=== PATIENT | female | born 1955 | race Caucasian/White ===

== ENCOUNTER 2019-02-04 00:43 | Emergency (ER) | payer MEDICARE, MEDICAID, SELFPAY ==
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
[2019-02-04 00:45] VITALS: BP 175/95; PULSE 82; RESP 18; TEMP 36.3; O2SAT 100; BMI 23.6
[2019-02-04 01:09] LABS: Add Manual Diff / Slide Review NO; Basophils Absolute Auto 0 /uL (0-100); Basophils Percent Auto 0.8 % (0-2); Eosinophils Absolute Auto 100 /uL (0-450); Eosinophils Percent Auto 1.3 % (2-4); Hematocrit 35.8 % (36-46); Hemoglobin 12.1 g/dL (12.0-16.0); Lymphocytes Absolute Auto 1100 /uL (1100-4500); Mean Corpuscular HGB Conc 33.9 % (30-36); Mean Corpuscular Hemoglobin 31.9 PG (26-34); Monocytes Absolute Auto 700 /uL (0-900); Monocytes Percent Auto 15.4 % (3-14); Neutrophils Absolute Auto 2600 /uL (1500-7000); Neutrophils Percent Auto 58.5 % (50-75); Platelet Count 440 X10^3/uL (150-400); Red Blood Cell Count 3.81 X10^6/uL (4.0-5.2); Red Cell Distribution Width 11.7 % (11.6-14.8); White Blood Cell Count 4.4 X10^3/uL (4.5-11.0)
--- NOTE | 2019-02-04 01:12 | PC.NURSE ---
Attempted to call significant other at request of the patient. No answer, voicemail left.
--- NOTE | 2019-02-04 01:28 | PC.NURSE ---
called at request of the patient. will be in as soon as he can.
[2019-02-04 01:36] LABS: Alanine Aminotransferase 25 IU/L (9-52); Albumin 4.4 g/dL (3.5-5.0); Albumin Globulin Ratio 1.4 (1.0-2.8); Alkaline Phosphatase 46 U/L (38-126); Aspartate Aminotransferase 31 IU/L (14-36); BUN Creatinine Ratio 34.3 (6-22); Bilirubin Total 0.2 mg/dL (0.2-1.3); Blood Urea Nitrogen 24 mg/dL (7-17); Calcium 9.1 mg/dL (8.4-10.2); Carbon Dioxide 27 mmol/L (22-32); Chloride 101 mmol/L (98-107); Estimated Glomerular Filt Rate > 60.0 mL/min (>60); Ethanol (ETOH) < 10 mg/dL; Globulin 3.1 g/dL (1.7-4.1); Glucose 103 mg/dL (80-110); HEMOLYSIS < 15 (0-50); Sodium 136 mmol/L (137-145); Total Protein 7.5 g/dL (6.3-8.2)
--- NOTE | 2019-02-04 01:45 | PC.NURSE ---
Odette at pt bedside per pt request. 1:1 staff at door.
[2019-02-04 01:51] LABS: Acetaminophen < 10 ug/mL (10-30); Lipase 87 U/L (23-300)
[2019-02-04 01:52] LABS: Salicylate < 1.0 mg/dL (<20)
--- NOTE | 2019-02-04 02:13 | PM.CHAP ---
Staff referral. Short visit to introduce myself. Pt shared that she was estranged from family and living in her car. Pt responded positively to my suggestion that the best path to mental and physical health was to follow the instructions of staff. Shared prayer. Dionisio Pascual [phone]
[2019-02-04] MEDS: ACETAMINOPHEN 325 MG TABLET 975 MG PO (02:39)
[2019-02-04] MEDS: LORazepam 1 MG TABLET PO (02:39)
[2019-02-04 03:22] LABS: Urine Amphetamines Negative (Negative); Urine Barbiturates Negative (Negative); Urine Benzodiazepines Negative (Negative); Urine Cocaine Negative (Negative); Urine MDMA Negative (Negative); Urine Methadone Negative (Negative); Urine Methamphetamines Negative (Negative); Urine Morphine/Opi cutoff 2000 Negative (Negative); Urine Oxycodone Negative (Negative); Urine Phencyclidine Negative (Negative); Urine Tetrahydrocannabinol Positive (Negative); Urine Tricyclic Antidepressant Negative (Negative)
[2019-02-04] MEDS: NICOTINE 21 MG PATCH TOP (03:22)
--- NOTE | 2019-02-04 03:23 | PC.NURSE ---
pt requested nicotene patch placed on back of right upper arm.
[2019-02-04 03:24] LABS: Thyroid Stimulating Hormone 3.09 uIU/mL (0.47-4.68)
[2019-02-04 04:00] VITALS: BP 160/85; PULSE 80; RESP 16; O2SAT 100
--- NOTE | 2019-02-04 05:09 | PC.NURSE ---
Spoke with Ed from [place]. Pt has been accepted by Dr. Tai, bed is at [place]. Receiving facility requests pt arrive around [id number]. [facility] transport has been arranged, ETA 0900.
[2019-02-04] MEDS: IBUPROFEN 400 MG TABLET 800 MG PO (05:45)
[2019-02-04] MEDS: SUMAtriptan 6 MG/0.5 ML VIAL SUBCUT (06:21)
--- NOTE | 2019-02-04 07:24 | PC.NURSE ---
PLASTIC MOLDER note patient is sleeping on the floor of her room upon me coming onto shift at 0700
[2019-02-04 07:45] VITALS: BP 153/89; PULSE 88; RESP 18; TEMP 36.1; O2SAT 97
--- NOTE | 2019-02-04 07:56 | PC.NURSE ---
CASE COORDINATOR note patient awakened from the floor for vitals, she agreed to move to the bed to eat her breakfast. She ambulated independently and was grateful for the meal.
== END 2019-02-04 09:18 | disposition short-term general hospital (02) ==
PROVIDERS: Emergency Provider Emergency Medicine; PCP Family Medicine
DX: R45.851 Suicidal ideations (principal)
CPT/HCPCS: 36415; 80053; 80305; 80320; 80329; 83690; 84443; 85025; 93005; 99284; 99285; G0480; J3030

== ENCOUNTER 2019-07-24 12:49 | Emergency (ER) | payer OTHER, MEDICAID, SELFPAY ==
--- NOTE | 2019-07-24 12:54 | ED.PSYCH ---
HPI - Psych General Chief Complaint: Psychiatric Symptoms Stated Complaint: SI Time Seen by Provider: 07/24/19 12:52 Source: patient and EMS Mode of arrival: EMS Limitations: no limitations History of Present Illness HPI Narrative: 63-year-old female with history of depression and anxiety as well as suicidal ideation alcoholism presents by EMS after a family friend called them because she had been making suicidal comments. On her arrival EMS states that she had told them she wanted to and intended to go home and take all of her medications an overdose. She is reluctant to discuss the circumstances of her feeling this way but even soon after her arrival she states that she feels much better and is no longer suicidal and has established care with [facility]. She did recently get out of [place] for alcohol reasons MD complaint: suicidal ideation Onset (ago): hour(s) Duration: changing over time History of same: Yes Relieving factors: none Exacerbating factors: alcohol Context: recent alcohol abuse Associated psychiatric symptoms: depression and suicidal ideation Associated symptoms: denies other symptoms Treatments prior to arrival: none If self harm: admits thoughts of self harm and has plan Related Data Home Medications Medication Instructions Recorded Confirmed divalproex 500 mg PO BID 07/24/19 07/24/19 levetiracetam 500 mg PO BID 07/24/19 07/24/19 metoprolol tartrate 25 mg PO BID 07/24/19 07/24/19 naproxen 500 mg PO BID 07/24/19 07/24/19 pantoprazole 40 mg PO BID 07/24/19 07/24/19 prazosin 1 mg PO DAILY 07/24/19 07/24/19 quetiapine 200 mg PO DAILY 07/24/19 07/24/19 sumatriptan succinate 100 mg PO PRN PRN 07/24/19 07/24/19 Allergies Allergy/AdvReac Type Severity Reaction Status Date / Time morphine [MORPHINE] Allergy Unknown MAKES PAIN Unverified 01/25/18 12:31 WORSE prochlorperazine AdvReac Unknown UNCONTROLLABLE Unverified 01/25/18 12:31 [From COMPAZINE] SHAKING Review of Systems Constitutional Constitutional: Denies chills, Denies fatigue, Denies fever(s), Denies frequent falls, Denies lethargy and Denies weakness Eyes Eyes: Denies change in vision, Denies eye discharge, Denies irritation and Denies loss of vision ENT Ears, Nose, Mouth, and Throat: Denies change in voice, Denies dizziness, Denies neck pain, Denies sore throat and Denies throat swelling Cardiovascular Cardiovascular: Denies chest pain, Denies irregular heart rhythm, Denies lightheadedness, Denies palpitations, Denies dyspnea, Denies dyspnea on exertion and Denies orthopnea Respiratory Respiratory: Denies cough, Denies dyspnea, Denies dyspnea on exertion and Denies wheezing Gastrointestinal Gastrointestinal: Denies abdominal pain, Denies change in bowel habits, Denies diarrhea, Denies nausea and Denies vomiting Genitourinary Genitourinary: Denies hematuria, Denies flank pain, Denies urinary incontinence and Denies urinary urgency Musculoskeletal Musculoskeletal: Denies back pain, Denies muscle weakness, Denies neck pain, Denies numbness and Denies tingling Integumentary/Breasts Skin/Breast: Denies pruritus, Denies erythema, Denies rash and Denies wounds Neurologic Neurologic: Denies behavioral changes, Denies confusion, Denies dizziness, Denies frequent falls, Denies loss of vision, Denies numbness, Denies tingling and Denies weakness Psychiatric Psychiatric: Denies anxiety, Denies behavioral changes, Denies confusion, Reports depression, Denies homicidal ideation and Denies suicidal ideation Endocrine Endocrine: Denies fatigue, Denies flushing and Denies palpitations Hematologic/Lymphatic Hematologic/Lymphatic: Denies easy bruising Allergic/Immunologic Allergic/Immunologic: Denies urticaria, Denies throat swelling and Denies wheezing FOR[facility] Medical History Asthma (Acute) Bipolar disorder (Acute) Migraine (Acute) PTSD (post-traumatic stress disorder) (Acute) Schizophrenia (Acute) Surgical History H/O: hysterectomy (Acute) History of cholecystectomy (Acute) Social History Smoking Status: Current every day smoker Social History Smoking Status: Current every day smoker Exam Narrative Exam Narrative: GENERAL 63 year old patient appears older than stated age. A bit thin and underweight, slightly disheveled, conversational with good eye contact. HEAD: Atraumatic. Normocephalic. EYES: Pupils equal round and reactive. Extraocular motions intact. No scleral icterus. No injection or drainage. ENT: Poor dentition throughout, nose without bleeding, purulent drainage. Throat without erythema, tonsillar hypertrophy or exudate. Airway patent. NECK: Trachea midline. Non tender CARDIOVASCULAR: Regular rate and rhythm without murmurs, gallops, or rubs. RESPIRATORY: Clear to auscultation. Breath sounds equal bilaterally. No wheezes, rales, or rhonchi. GASTROINTESTINAL: Abdomen soft, non-tender, nondistended. EXTREMITIES: No edema or joint tenderness. BACK: Nontender without deformity or crepitance. No flank tenderness. NEURO: AOx3. SKIN: No rash or erythema of visible areas Initial Vital Signs Initial Vital Signs: Vital Signs Temperature 98.3 F 07/24/19 13:03 Pulse Rate 86 07/24/19 13:03 Respiratory Rate 24 07/24/19 13:03 Blood Pressure 134/81 07/24/19 13:03 Pulse Oximetry 97 07/24/19 13:03 Course Orders Ordered: ED Orders 07/24/19 13:00 Urine Drug Screen, Rapid Stat 07/24/19 13:12 Complete Blood Count AUTO DIFF Stat Comprehensive Metabolic Panel Stat Ethanol (ETOH) Stat Thyroid Stimulating Hormone Stat Discontinued Medications Acetaminophen (Tylenol) 975 mg PO NOW ONE Stop: 07/24/19 14:28 Last Admin: 07/24/19 14:44 Dose: Not Given Documented by: RALEIGH Ketorolac Tromethamine (Toradol) 60 mg IM NOW ONE Stop: 07/24/19 14:45 Last Admin: 07/24/19 14:47 Dose: 60 mg Documented by: RALEIGH Lorazepam (Ativan) 1.5 mg PO NOW ONE Stop: 07/24/19 14:28 Last Admin: 07/24/19 14:41 Dose: 1.5 mg Documented by: RALEIGH Nicotine (Nicoderm) 21 mg TOP NOW ONE Stop: 07/24/19 18:54 Last Admin: 07/24/19 19:02 Dose: 21 mg Documented by: MARÍA Vital Signs Vital signs: Vital Signs - 8 hr 07/24/19 13:03 07/24/19 19:07 Temperature 98.3 F 97.5 F L Pulse Rate 86 82 Respiratory Rate 24 16 Blood Pressure 134/81 Blood Pressure [Left Arm] 113/67 Pulse Oximetry 97 96 MDM - Psych Lab Data Result diagrams: 07/24/19 13:12 07/24/19 13:12 Labs: Lab Results 07/24/19 07/24/19 07/24/19 Range/Units 13:00 13:12 13:12 WBC 7.7 (4.5-11.0) X10^3/uL RBC 3.84 L (4.0-5.2) X10^6/uL Hgb 11.7 L (12.0-16.0) g/dL Hct 34.9 L (36-46) % MCV 90.9 (80-100) fL MCH 30.4 (26-34) PG MCHC 33.4 (30-36) % RDW 13.1 (11.6-14.8) % Plt Count 708 H (150-400) X10^3/uL Neut % (Auto) 58.2 (50-75) % Lymph % (Auto) 31.2 (25-40) % Stewart % (Auto) 8.3 (3-14) % Eos % (Auto) 1.1 L (2-4) % Baso % (Auto) 1.2 (0-2) % Neut # (Auto) 4500 (9537-5528) /uL Lymph # (Auto) 2400 (1477-2085) /uL Stewart # (Auto) 600 (0-900) /uL Eos # (Auto) 100 (0-450) /uL Baso # (Auto) 100 (0-100) /uL Sodium 139 (137-145) mmol/L Potassium 3.7 (3.4-5.1) mmol/L Chloride 102 (98-107) mmol/L Carbon Dioxide 26 (22-32) mmol/L BUN 13 (7-17) mg/dL Creatinine 0.60 (0.52-1.04) mg/dL Estimated GFR > 60.0 (>60) mL/min BUN/Creatinine Ratio 21.7 (6-22) Glucose 64 L (80-110) mg/dL Calcium 9.6 (8.4-10.2) mg/dL Total Bilirubin 0.3 (0.2-1.3) mg/dL AST 26 (14-36) IU/L ALT 14 (9-52) IU/L Alkaline Phosphatase 54 (38-126) U/L Total Protein 7.4 (6.3-8.2) g/dL Albumin 4.2 (3.5-5.0) g/dL Globulin 3.2 (1.7-4.1) g/dL Albumin/Globulin Ratio 1.3 (1.0-2.8) TSH (0.47-4.68) uIU/mL U Morph 300 ng/mL cutoff Negative (Negative) Ur Oxycodone Screen Negative (Negative) Urine Methadone Screen Negative (Negative) Ur Barbiturates Screen Negative (Negative) U Tricyclic Antidepress Negative (Negative) Ur Phencyclidine Scrn Negative (Negative) Ur Amphetamines Screen Negative (Negative) U Methamphetamines Scrn Negative (Negative) Ur MDMA Scrn (Ecstasy) Negative (Negative) U Benzodiazepines Scrn Negative (Negative) Urine Cocaine Screen Negative (Negative) U Marijuana (THC) Screen Positive H (Negative) Ethyl Alcohol 43 H ( - 10) mg/dL 07/24/19 Range/Units 13:12 WBC (4.5-11.0) X10^3/uL RBC (4.0-5.2) X10^6/uL Hgb (12.0-16.0) g/dL Hct (36-46) % MCV (80-100) fL MCH (26-34) PG MCHC (30-36) % RDW (11.6-14.8) % Plt Count (150-400) X10^3/uL Neut % (Auto) (50-75) % Lymph % (Auto) (25-40) % Stewart % (Auto) (3-14) % Eos % (Auto) (2-4) % Baso % (Auto) (0-2) % Neut # (Auto) (3636-2483) /uL Lymph # (Auto) (4956-3775) /uL Stewart # (Auto) (0-900) /uL Eos # (Auto) (0-450) /uL Baso # (Auto) (0-100) /uL Sodium (137-145) mmol/L Potassium (3.4-5.1) mmol/L Chloride (98-107) mmol/L Carbon Dioxide (22-32) mmol/L BUN (7-17) mg/dL Creatinine (0.52-1.04) mg/dL Estimated GFR (>60) mL/min BUN/Creatinine Ratio (6-22) Glucose (80-110) mg/dL Calcium (8.4-10.2) mg/dL Total Bilirubin (0.2-1.3) mg/dL AST (14-36) IU/L ALT (9-52) IU/L Alkaline Phosphatase (38-126) U/L Total Protein (6.3-8.2) g/dL Albumin (3.5-5.0) g/dL Globulin (1.7-4.1) g/dL Albumin/Globulin Ratio (1.0-2.8) TSH 0.31 L (0.47-4.68) uIU/mL U Morph 300 ng/mL cutoff (Negative) Ur Oxycodone Screen (Negative) Urine Methadone Screen (Negative) Ur Barbiturates Screen (Negative) U Tricyclic Antidepress (Negative) Ur Phencyclidine Scrn (Negative) Ur Amphetamines Screen (Negative) U Methamphetamines Scrn (Negative) Ur MDMA Scrn (Ecstasy) (Negative) U Benzodiazepines Scrn (Negative) Urine Cocaine Screen (Negative) U Marijuana (THC) Screen (Negative) Ethyl Alcohol ( - 10) mg/dL Point of Care Testing Glucose POC 89 Urine Dip Bedside Urine Glucose Negative Bedside Urine Bilirubin - Negative Bedside Urine Ketone - Negative Urine Specific [place] 1.010 Bedside Urine Occult Blood - Negative Bedside Urine pH 6.0 Bedside Urine Protein - Negative Bedside Urine Urobilinogen - Negative Bedside Urine Nitrite - Negative Bedside Urine Leukocytes + 70 Esterase MDM Narrative Medical decision making narrative: patient has SI and plan. Voluntary, needs help. Seen by [facility], awaiting placement, bed available at midnight. Discharge Plan Departure Patient Disposition: [facility]fer [facility] Clinical Impression: Suicidal ideation Prescriptions: No Action levetiracetam 500 mg tablet 500 mg PO BID RF: 0 sumatriptan succinate 100 mg tablet 100 mg PO PRN PRN (Reason: Migraine Headache) RF: 0 prazosin 1 mg capsule 1 mg PO DAILY RF: 0 quetiapine 200 mg tablet 200 mg PO DAILY RF: 0 divalproex 500 mg tablet,delayed release (DR/EC) 500 mg PO BID RF: 0 pantoprazole 40 mg tablet,delayed release (DR/EC) 40 mg PO BID RF: 0 naproxen 500 mg tablet 500 mg PO BID RF: 0 metoprolol tartrate 25 mg tablet 25 mg PO BID RF: 0 Referrals: Donovan Horn MD [Primary Care Provider] -
[2019-07-24 13:03] VITALS: BP 134/81; PULSE 86; RESP 24; TEMP 36.8; O2SAT 97
[2019-07-24 13:19] LABS: Add Manual Diff / Slide Review NO; Basophils Absolute Auto 100 /uL (0-100); Basophils Percent Auto 1.2 % (0-2); Eosinophils Absolute Auto 100 /uL (0-450); Eosinophils Percent Auto 1.1 % (2-4); Hematocrit 34.9 % (36-46); Hemoglobin 11.7 g/dL (12.0-16.0); Lymphocytes Absolute Auto 2400 /uL (1100-4500); Lymphocytes Percent Auto 31.2 % (25-40); Mean Corpuscular HGB Conc 33.4 % (30-36); Mean Corpuscular Hemoglobin 30.4 PG (26-34); Mean Corpuscular Volume 90.9 fL (80-100); Monocytes Absolute Auto 600 /uL (0-900); Monocytes Percent Auto 8.3 % (3-14); Neutrophils Absolute Auto 4500 /uL (1500-7000); Neutrophils Percent Auto 58.2 % (50-75); Platelet Count 708 X10^3/uL (150-400); Red Blood Cell Count 3.84 X10^6/uL (4.0-5.2); Red Cell Distribution Width 13.1 % (11.6-14.8); White Blood Cell Count 7.7 X10^3/uL (4.5-11.0)
[2019-07-24 13:22] LABS: UR Morphine/Opiate cutoff 300 Negative (Negative); Ur Creatinine Normal (Normal); Ur Specific Gravity Normal (Normal); Urine Amphetamines Negative (Negative); Urine Barbiturates Negative (Negative); Urine Benzodiazepines Negative (Negative); Urine Cocaine Negative (Negative); Urine MDMA Negative (Negative); Urine Methadone Negative (Negative); Urine Methamphetamines Negative (Negative); Urine Oxycodone Negative (Negative); Urine Phencyclidine Negative (Negative); Urine Tetrahydrocannabinol Positive (Negative); Urine Tricyclic Antidepressant Negative (Negative); Urine pH Normal (Normal)
--- NOTE | 2019-07-24 13:37 | PC.NURSE ---
Patient has been cooperative with changing into paper scrubs and giving up her items for us to store them. She has crayons and papers for drawing and I gave her some snacks and drinks.
--- NOTE | 2019-07-24 13:39 | PC.NURSE ---
Patient used the bathroom and was able to give us a urine sample.
[2019-07-24 13:46] LABS: Alanine Aminotransferase 14 IU/L (9-52); Albumin 4.2 g/dL (3.5-5.0); Albumin Globulin Ratio 1.3 (1.0-2.8); Alkaline Phosphatase 54 U/L (38-126); Aspartate Aminotransferase 26 IU/L (14-36); BUN Creatinine Ratio 21.7 (6-22); Bilirubin Total 0.3 mg/dL (0.2-1.3); Blood Urea Nitrogen 13 mg/dL (7-17); Calcium 9.6 mg/dL (8.4-10.2); Carbon Dioxide 26 mmol/L (22-32); Chloride 102 mmol/L (98-107); Estimated Glomerular Filt Rate > 60.0 mL/min (>60); Ethanol (ETOH) 43 mg/dL; Globulin 3.2 g/dL (1.7-4.1); Glucose 64 mg/dL (80-110); HEMOLYSIS < 15 (0-50); Potassium 3.7 mmol/L (3.4-5.1); Sodium 139 mmol/L (137-145); Total Protein 7.4 g/dL (6.3-8.2)
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
[2019-07-24 14:23] LABS: Thyroid Stimulating Hormone 0.31 uIU/mL (0.47-4.68)
--- NOTE | 2019-07-24 14:37 | PC.NURSE ---
Patient asked if we can call her ex- to come in to ER to be with her or she wants to leave AMA
--- NOTE | 2019-07-24 14:40 | PC.NURSE ---
Patient states if her xhusband is not here within 10 minutes she is going to AMA. Will try getting ahold of him per the nurse.
[2019-07-24] MEDS: LORazepam 0.5 MG TABLET 1.5 MG PO (14:41)
[2019-07-24] MEDS: KETOROLAC 60 MG/2 ML VIAL IM (14:47)
--- NOTE | 2019-07-24 15:10 | PC.NURSE ---
Patient's family member at her bedside per her request
--- NOTE | 2019-07-24 15:39 | PC.NURSE ---
Addendum entered by Anastasia Gutierrez R.N. 07/24/19 22:12: Patient left via BLS ambulance to [facility]. All janaeayahdelia belongings sent with patient Addendum entered by Anastasia Gutierrez R.N. 07/24/19 19:56: shower provided. Addendum entered by Anastasia Gutierrez R.N. 07/24/19 19:11: Patient requested a nicotine patch for increasing aggitation. Order obtained and patch placed to left upper arm. Addendum entered by Anastasia Gutierrez R.N. 07/24/19 18:13: Patient sitting up in bed coloring. Patient pleasent, calm, and cooperative at this time. Original Note: Evening Shift- ExHusband at bedside, brought in fast food. Patient calm.
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
[2019-07-24] MEDS: NICOTINE 21 MG PATCH TOP (19:02)
[2019-07-24 19:07] VITALS: BP 113/67; PULSE 82; RESP 16; TEMP 36.4; O2SAT 96
--- NOTE | 2019-07-24 21:02 | PC.NURSE ---
1500: Patient drawing pictures for staff.
== END 2019-07-24 22:12 ==
PROVIDERS: Emergency Provider Emergency Medicine; PCP Family Medicine
DX: R45.851 Suicidal ideations (principal)
CPT/HCPCS: 36415; 80053; 80305; 80320; 81003; 82962; 84443; 85025; 96372; 99284; 99285; J1885

== ENCOUNTER 2023-09-01 11:22 | Emergency (ER) | payer MEDICARE, MEDICAID, SELFPAY ==
[2023-09-01 11:26] VITALS: BP 104/62; PULSE 84; RESP 16; TEMP 36.7; O2SAT 99; BMI 20.5
--- NOTE | 2023-09-01 11:38 | ED.BACK ---
HPI - Back Pain/Injury <Reena Soliz PA-C - Last Filed: 09/01/23 14:02> General Chief Complaint: Back Pain/Injury Stated Complaint: SOB Time Seen by Provider: 09/01/23 11:30 Source: patient and EMS History of Present Illness HPI Narrative: Patient is a 67-year-old female brought in by EMS with a history of bipolar disease and schizophrenia with chronic methamphetamine, tobacco, marijuana and alcohol use disorder who presents after falling while attempting to cross the street to reach the [facility]. She reports that she has felt dizzy for 2 days. 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 She endorses a loss of consciousness which she reports was several minutes. She is complaining of pain on the top of her head where she hit the ground, pain in her neck, pain in her left ankle. She reports being in the emergency room on [facility] last night after a separate fall incident. She thinks she may have been diagnosed with a urinary tract infection but she does not know for sure. She reports no alcohol use today, last methamphetamine use 3 days ago. She is accompanied by her dog who is resting comfortably on her chest. Record review by APPLICATION DEVELOPMENT SPECIALIST shows that she visited both [facility] with chief complaint of shortness of breath, contusion of low back and pelvis. She has also had multiple other regional ER visits within the past 2 weeks for shortness of breath, chest pain and falls. Related Data Home Medications Medication Instructions Recorded Confirmed divalproex 500 mg tablet,delayed 500 mg PO BID 07/24/19 07/29/19 release levetiracetam 500 mg tablet 500 mg PO BID 07/24/19 07/29/19 metoprolol tartrate 25 mg tablet 25 mg PO BID 07/24/19 07/29/19 naproxen 500 mg tablet 500 mg PO BID 07/24/19 07/29/19 pantoprazole 40 mg tablet,delayed 40 mg PO BID 07/24/19 07/29/19 release prazosin 1 mg capsule 1 mg PO DAILY 07/24/19 07/29/19 quetiapine 200 mg tablet 200 mg PO DAILY 07/24/19 07/29/19 sumatriptan succinate 100 mg tablet 100 mg PO PRN PRN Migraine Headache 07/24/19 07/29/19 Previous Rx's Medication Instructions Recorded albuterol sulfate 90 mcg/actuation 2 puff inhalation Q4-6H PRN 07/29/19 aerosol inhaler bronchospasm #8.5 grams cefdinir 300 mg capsule 300 mg PO BID #10 caps 09/01/23 Allergies Allergy/AdvReac Type Severity Reaction Status Date / Time morphine [MORPHINE] Allergy Unknown MAKES PAIN Verified 07/29/19 15:29 WORSE prochlorperazine AdvReac Unknown UNCONTROLLABLE Verified 07/29/19 15:29 [From COMPAZINE] SHAKING Review of Systems <Reena Soliz PA-C - Last Filed: 09/01/23 14:02> Review of Systems ROS Unobtainable: All systems reviewed & are unremarkable except as noted in HPI and below Patient History <Reena Soliz PA-C - Last Filed: 09/01/23 14:02> Medical History (Updated 09/01/23 @ 12:57 by Reena Soliz PA-C) Schizophrenia PTSD (post-traumatic stress disorder) Migraine Bipolar disorder Asthma Surgical History H/O: hysterectomy History of cholecystectomy Social History Smoking Status: Current every day smoker Smoking Status: Current every day smoker Substance Use Type: marijuana Exam <Reena Soliz PA-C - Last Filed: 09/01/23 14:02> Narrative Exam Narrative: GENERAL: 67 year old patient who is cachectic, poorly kempt. No apparent distress when resting. Dog on chest. NEURO: AOx3. HEAD: Atraumatic. Normocephalic. EYES: Pupils equal round and reactive. Extraocular motions intact. No scleral icterus. No injection or drainage. ENT: Nose without bleeding or purulent drainage. Airway patent. NECK: Trachea midline. Non tender CARDIOVASCULAR: Regular rate and rhythm without murmurs, gallops, or rubs. RESPIRATORY: Clear to auscultation. Breath sounds equal bilaterally. No wheezes, rales, or rhonchi. GASTROINTESTINAL: Abdomen soft, non-tender, nondistended. EXTREMITIES: Trace edema of the left lateral malleolus. No visible deformity. Diffuse tenderness to palpation of the left ankle. SPINE: Midline spinal tenderness on the C-spine. No palpable step-off, no depressed skull fracture. No negron sign. SKIN: No rash or erythema of visible areas Initial Vital Signs Initial Vital Signs: Vital Signs Temperature 98.1 F 09/01/23 11:26 Pulse Rate 84 09/01/23 11:26 Respiratory Rate 16 09/01/23 11:26 Blood Pressure 104/62 09/01/23 11:26 Pulse Oximetry 99 09/01/23 11:26 Oxygen Delivery Method Room Air 09/01/23 11:26 <Sergo Jacobs DO - Last Filed: 09/01/23 14:11> Initial Vital Signs Initial Vital Signs: Vital Signs Temperature 98.1 F 09/01/23 11:26 Pulse Rate 84 09/01/23 11:26 Respiratory Rate 16 09/01/23 11:26 Blood Pressure 104/62 09/01/23 11:26 Pulse Oximetry 99 09/01/23 11:26 Oxygen Delivery Method Room Air 09/01/23 11:26 Course <Reena Soliz PA-C - Last Filed: 09/01/23 14:02> Orders Ordered: ED Orders 09/01/23 11:39 CT cervical spine wo con Stat CT head/brain wo con Stat 09/01/23 11:46 XR ankle LT min 3V Stat 09/01/23 12:17 Complete Blood Count AUTO DIFF Stat Comprehensive Metabolic Panel Stat Lipase Stat Troponin & CK Cardiac Panel Stat 09/01/23 12:20 Urine Culture Stat Urine Microscopic Stat urine tox [Urine Drug Screen, Rapid] Stat 09/01/23 12:23 EKG-12 Lead Stat 09/01/23 12:26 Consult to APPLICATION DEVELOPMENT SPECIALIST - Home Decorator Stat Discontinued Medications Aspirin (Aspirin 81 Mg Chew Tab) 324 mg PO NOW ONE Stop: 09/01/23 11:39 Last Admin: 09/01/23 13:05 Dose: Not Given Documented By: SHIKHA Sodium Chloride (Normal Saline 0.9%) 1,000 mls @ 1,000 mls/hr IV BOLUS ONE Stop: 09/01/23 12:37 Last Infusion: 09/01/23 13:15 Dose: Infused Documented By: Admin: 09/01/23 12:35 Dose: 1,000 mls/hr Documented By: LINDSEY Ibuprofen (Ibuprofen 400 Mg Tablet) 800 mg PO NOW ONE Stop: 09/01/23 12:58 Last Admin: 09/01/23 13:05 Dose: 800 mg Documented By: SHIKHA Vital Signs Vital signs: Vital Signs - 8 hr 09/01/23 11:26 09/01/23 12:37 Temperature 98.1 F 98.9 F Pulse Rate 84 71 Respiratory Rate 16 14 Blood Pressure 104/62 111/63 Pulse Oximetry 99 97 Oxygen Delivery Method Room Air Room Air <Sergo Jacobs DO - Last Filed: 09/01/23 14:11> Orders Ordered: ED Orders 09/01/23 11:39 CT cervical spine wo con Stat CT head/brain wo con Stat 09/01/23 11:46 XR ankle LT min 3V Stat 09/01/23 12:17 Complete Blood Count AUTO DIFF Stat Comprehensive Metabolic Panel Stat Lipase Stat Troponin & CK Cardiac Panel Stat 09/01/23 12:20 Urine Culture Stat Urine Microscopic Stat urine tox [Urine Drug Screen, Rapid] Stat 09/01/23 12:23 EKG-12 Lead Stat 09/01/23 12:26 Consult to [facility] - Home Decorator Stat Discontinued Medications Aspirin (Aspirin 81 Mg Chew Tab) 324 mg PO NOW ONE Stop: 09/01/23 11:39 Last Admin: 09/01/23 13:05 Dose: Not Given Documented By: SHIKHA Sodium Chloride (Normal Saline 0.9%) 1,000 mls @ 1,000 mls/hr IV BOLUS ONE Stop: 09/01/23 12:37 Last Infusion: 09/01/23 13:15 Dose: Infused Documented By: Admin: 09/01/23 12:35 Dose: 1,000 mls/hr Documented By: LINDSEY Ibuprofen (Ibuprofen 400 Mg Tablet) 800 mg PO NOW ONE Stop: 09/01/23 12:58 Last Admin: 09/01/23 13:05 Dose: 800 mg Documented By: SHIKHA Vital Signs Vital signs: Vital Signs - 8 hr 09/01/23 11:26 09/01/23 12:37 Temperature 98.1 F 98.9 F Pulse Rate 84 71 Respiratory Rate 16 14 Blood Pressure 104/62 111/63 Pulse Oximetry 99 97 Oxygen Delivery Method Room Air Room Air MDM - Back Pain/Injury <Reena Soliz PA-C - Last Filed: 09/01/23 14:02> Lab Data 09/01/23 12:17 09/01/23 12:17 Labs: Lab Results 09/01/23 09/01/23 Range/Units 12:17 12:20 WBC 5.3 (4.5-11.0) X10^3/uL RBC 3.78 L (4.0-5.2) X10^6/uL Hgb 11.4 L (12.0-16.0) g/dL Hct 33.2 L (36-46) % MCV 87.8 (80-100) fL MCH 30.2 (26-34) PG MCHC 34.3 (30-36) % RDW 15.2 H (11.6-14.8) % Plt Count 459 H (150-400) X10^3/uL Neut % (Auto) 52.0 (50-75) % Lymph % (Auto) 32.7 (25-40) % [place] % (Auto) 12.6 (3-14) % Eos % (Auto) 1.9 L (2-4) % Baso % (Auto) 0.8 (0-2) % Neut # (Auto) 2800 (7728-5192) /uL Lymph # (Auto) 1700 (7322-2063) /uL [place] # (Auto) 700 (0-900) /uL Eos # (Auto) 100 (0-450) /uL Baso # (Auto) 0 (0-100) /uL Sodium 129 L (137-145) mmol/L Potassium 4.2 (3.4-5.1) mmol/L Chloride 99 (98-107) mmol/L Carbon Dioxide 26 (22-32) mmol/L BUN 18 H (7-17) mg/dL Creatinine 0.70 (0.52-1.04) mg/dL Estimated GFR > 60 (>60) mL/min BUN/Creatinine Ratio 25.7 H (6-22) Glucose 72 L (80-110) mg/dL Calcium 9.3 (8.4-10.2) mg/dL Total Bilirubin 0.4 (0.2-1.3) mg/dL AST 27 (14-36) IU/L ALT 16 (<35) IU/L Alkaline Phosphatase 48 (38-126) U/L Total Creatine Kinase 56 (30-135) U/L Troponin I < 0.012 (0.01-0.034) ng/mL Total Protein 7.1 (6.3-8.2) g/dL Albumin 4.0 (3.5-5.0) g/dL Globulin 3.1 (1.7-4.1) g/dL Albumin/Globulin Ratio 1.3 (1.0-2.8) Lipase 130 (23-300) U/L Urine RBC None seen (0-5/HPF) Urine WBC 1-5/hpf (0-5/HPF) Ur Squamous Epith Cells 1-5 /hpf (0-5/HPF) Urine Bacteria Moderate (10-30) H (None) Ur Culture Indicated? Specimen cultured U Opiates 300ng/mL cut Negative (Negative) Ur Oxycodone Screen Negative (Negative) Urine Methadone Screen Negative (Negative) Ur Barbiturates Screen Negative (Negative) U Tricyclic Antidepress Negative (Negative) Ur Phencyclidine Scrn Negative (Negative) Ur Amphetamines Screen Negative (Negative) U Methamphetamines Scrn Positive H (Negative) Ur MDMA Scrn (Ecstasy) Negative (Negative) U Benzodiazepines Scrn Negative (Negative) Urine Cocaine Screen Negative (Negative) U Marijuana (THC) Screen Positive H (Negative) Urine Dip Bedside Urine Glucose Negative Bedside Urine Bilirubin - Negative Bedside Urine Ketone - Negative Urine Specific [place] 1.020 Bedside Urine Occult Blood - Negative Bedside Urine pH 6.0 Bedside Urine Protein - Negative Bedside Urine Urobilinogen - Negative Bedside Urine Nitrite - Negative Bedside Urine Leukocytes ++ 125 Esterase Imaging Data Extremity x-ray #1: Radiologist's Impression: PROCEDURE: XR ANKLE LT MIN 3V INDICATIONS: fall, pain w/ palpation TECHNIQUE: 3 views of the ankle were acquired. COMPARISON: None. FINDINGS: Bones: No fractures or dislocations. Ankle mortise is normally aligned. No suspicious bony lesions. Soft tissues: No tibiotalar joint effusion. Achilles tendon appears normal. IMPRESSION: No evidence acute bony abnormality. If clinical suspicion and/or symptoms persist, further assessment with repeat plain films, or advanced imaging (e.g., CT, MRI, or bone scan) may be helpful for further assessment. Dictated by: Kelton Huang M.D. on 09/01/2023 at 12:34 Approved by: Kelton Huang M.D. on 09/01/2023 at 12:35 CT scan - head: Radiologist's Impression: PROCEDURE: CT HEAD/BRAIN WO CON INDICATIONS: fall with LOC TECHNIQUE: Noncontrast 4.5 mm thick angled axial sections acquired from the foramen magnum to the vertex, with coronal and sagittal reformats. For radiation dose reduction, the following was used: automated exposure control, adjustment of mA and/or kV according to patient size. COMPARISON: [facility], CT, CT HEAD WITHOUT CONTRAST, 07/16/2023, 15:30. [facility], CT, CT CERVICAL SPINE WO CON, 09/01/2023, 11:48. [facility], CT, CT HEAD WITHOUT CONTRAST, 07/28/2023, 0:37. FINDINGS: Image quality: Mild streak artifact can be seen through the skull base. CSF spaces: Basal cisterns are patent. No extra-axial fluid collections. The ventricles are symmetric in size and shape. Brain: No intracranial bleeds or masses. There is cerebral volume loss for age, with resultant ventricular and sulcal prominence. There are periventricular and deep white matter chronic small vessel ischemic changes. There is intracranial internal carotid artery atherosclerosis. Skull and face: Calvarium and visualized facial bones appear intact, without suspicious lesions. Sinuses: Visualized sinuses and mastoids are clear. IMPRESSION: No acute intracranial hemorrhage is seen. No acute intracranial process is seen. Dictated by: Christopher Lynn M.D. on 09/01/2023 at 11:04 Approved by: Christopher Lynn M.D. on 09/01/2023 at 11:05 CT - cervical spine: Radiologist's Impression: PROCEDURE: CT CERVICAL SPINE WO CON INDICATIONS: fall with loss of consciousness, midline tenderness TECHNIQUE: Noncontrast 3 mm thick sections acquired from the skull base to the T4 level. Sagittal and coronal reformats were then constructed. For radiation dose reduction, the following was used: automated exposure control, adjustment of mA and/or kV according to patient size. COMPARISON: [facility], CT, CT CERVICAL SPINE WITHOUT CONTRAST, 07/28/2023, 0:37. [facility], CT, CT CERVICAL SPINE WITHOUT CONTRAST, 05/25/2023, 13:28. [facility], CT, CT HEAD/BRAIN WO CON, 09/01/2023, 11:48. FINDINGS: Image quality: This examination is limited by involuntary motion artifact. Bones: No fractures or dislocations. Visualized superior ribs are intact. Focal degenerative change is seen involving the C1-C2 interface anteriorly. There is moderate to severe disc space narrowing seen at C5-C6 and C6-C7, with associated endplate irregularity and sclerosis. Posteriorly directed endplate osteophytes can be seen at these levels. Milder degenerative changes are seen elsewhere. Soft tissues: Prevertebral soft tissues are normal in thickness. No paravertebral hematomas. No apical pneumothoraces. Atherosclerotic calcification is noted. IMPRESSION: Motion limited study, without an acute fracture identified. Degenerative changes are seen, which are worst inferiorly. Dictated by: Christopher Lynn M.D. on 09/01/2023 at 11:06 Approved by: Christopher Lynn M.D. on 09/01/2023 at 11:09 ECG Data Interpretation: normal sinus rhythm, no ST-T changes MDM Narrative Medical decision making narrative: Multiple etiologies for patient's symptoms considered including, but not limited to: Intracranial hemorrhage, skull fracture, C-spine fracture, ankle sprain versus fracture, chronic pain, infection, chronic substance use disorder. We will attempt to obtain records from [facility] last night to review their findings. We will check labs and CT imaging head and C-spine today as well as x-ray of the left ankle to assess for fracture. Further evaluation notes the patient has been visiting regional emergency rooms many times in the past 2 weeks complaining of chest pain, shortness of breath, falling. Her evaluation today is very reassuring. CT of head and neck are within normal limits. There is no evidence of fracture on left ankle xray but I do suspect a sprain of the left ankle. Her labs are without clinically significant abnormality including a negative troponin. Her urine is positive for marijuana and methamphetamine. Her urine does show bacteria and she thinks the hospital last night treated her with antibiotics for a bladder infection. She does complain of dysuria and frequency. She does not think she has a prescription for antibiotics to take home but agrees she will pickling operator some if I write them. I have sent a prescription for cefdinir x5 days to her requested pharmacy. During her stay in the emergency room, patient requests consult with social insurance adviser for rehab options. utilities ground worker consulted and provided a list of outpatient resources as patient has decided she is ready to discharge. Patient received ibuprofen and a 1 L normal saline bolus while in the emergency room and reports she feels better. She is discharged home with her dog. I strongly encouraged her to consider reaching out to a resource to consider substance use cessation Patient's symptoms improved over duration of stay with above-stated therapies. Findings and discharge diagnosis discussed with patient/family followed by verbalization of understanding Return precautions discussed with patient/family whom verbalize understanding of diagnosis and plan <Sergo Jacobs, DO - Last Filed: 09/01/23 14:11> Lab Data Labs: Lab Results 09/01/23 09/01/23 Range/Units 12:17 12:20 WBC 5.3 (4.5-11.0) X10^3/uL RBC 3.78 L (4.0-5.2) X10^6/uL Hgb 11.4 L (12.0-16.0) g/dL Hct 33.2 L (36-46) % MCV 87.8 (80-100) fL MCH 30.2 (26-34) PG MCHC 34.3 (30-36) % RDW 15.2 H (11.6-14.8) % Plt Count 459 H (150-400) X10^3/uL Neut % (Auto) 52.0 (50-75) % Lymph % (Auto) 32.7 (25-40) % [place] % (Auto) 12.6 (3-14) % Eos % (Auto) 1.9 L (2-4) % Baso % (Auto) 0.8 (0-2) % Neut # (Auto) 2800 (8579-4265) /uL Lymph # (Auto) 1700 (8348-8712) /uL [place] # (Auto) 700 (0-900) /uL Eos # (Auto) 100 (0-450) /uL Baso # (Auto) 0 (0-100) /uL Sodium 129 L (137-145) mmol/L Potassium 4.2 (3.4-5.1) mmol/L Chloride 99 (98-107) mmol/L Carbon Dioxide 26 (22-32) mmol/L BUN 18 H (7-17) mg/dL Creatinine 0.70 (0.52-1.04) mg/dL Estimated GFR > 60 (>60) mL/min BUN/Creatinine Ratio 25.7 H (6-22) Glucose 72 L (80-110) mg/dL Calcium 9.3 (8.4-10.2) mg/dL Total Bilirubin 0.4 (0.2-1.3) mg/dL AST 27 (14-36) IU/L ALT 16 (<35) IU/L Alkaline Phosphatase 48 (38-126) U/L Total Creatine Kinase 56 (30-135) U/L Troponin I < 0.012 (0.01-0.034) ng/mL Total Protein 7.1 (6.3-8.2) g/dL Albumin 4.0 (3.5-5.0) g/dL Globulin 3.1 (1.7-4.1) g/dL Albumin/Globulin Ratio 1.3 (1.0-2.8) Lipase 130 (23-300) U/L Urine RBC None seen (0-5/HPF) Urine WBC 1-5/hpf (0-5/HPF) Ur Squamous Epith Cells 1-5 /hpf (0-5/HPF) Urine Bacteria Moderate (10-30) H (None) Ur Culture Indicated? Specimen cultured U Opiates 300ng/mL cut Negative (Negative) Ur Oxycodone Screen Negative (Negative) Urine Methadone Screen Negative (Negative) Ur Barbiturates Screen Negative (Negative) U Tricyclic Antidepress Negative (Negative) Ur Phencyclidine Scrn Negative (Negative) Ur Amphetamines Screen Negative (Negative) U Methamphetamines Scrn Positive H (Negative) Ur MDMA Scrn (Ecstasy) Negative (Negative) U Benzodiazepines Scrn Negative (Negative) Urine Cocaine Screen Negative (Negative) U Marijuana (THC) Screen Positive H (Negative) Urine Dip Bedside Urine Glucose Negative Bedside Urine Bilirubin - Negative Bedside Urine Ketone - Negative Urine Specific [place] 1.020 Bedside Urine Occult Blood - Negative Bedside Urine pH 6.0 Bedside Urine Protein - Negative Bedside Urine Urobilinogen - Negative Bedside Urine Nitrite - Negative Bedside Urine Leukocytes ++ 125 Esterase Discharge Plan Departure Patient Disposition: Home Clinical Impression: Musculoskeletal back pain Left ankle sprain Qualifiers: Encounter type: initial encounter Involved ligament of ankle: unspecified ligament Qualified Code(s): S93.402A - Sprain of unspecified ligament of left ankle, initial encounter Instructions: DI for Low Back Pain, DI for Urinary Tract Infection (UTI), How To Perform RICE (Rest, Ice, Compress, Elevate) Activity Restrictions/Additional Instructions: *You have been diagnosed with left ankle sprain and musculoskeletal back pain. You also appear to have a urinary tract infection. I will send a prescription for antibiotics to your pharmacy. I would advise you to take Tylenol for pain and use rest, ice, compression and elevation for your ankle sprain. I would strongly encourage you to follow up with one of the outpatient substance use resources that we gave you. *What to do: *Please continue to take your regular medications as directed. [x] New medication prescriptions sent to your pharmacy: [Senthil Sinclair] [ ] New medication written as a paper prescription [ ] No new medications given *Please follow up with your primary care provider in 2-3 days, call for an appointment. Let them know you were seen in the Emergency Department and that we ask that you be seen in follow up. We will electronically transmit a record of today's note if your PCP is in our system *If you do not have a primary care provider please contact the [facility] Resource line at [phone]. They will ask some questions about your medical history and help get you set up with a doctor in the community. *Return to Emergency Department if you should have any new, worsening or concerning symptoms, such as [fever greater than 101 F, shaking chills, worsening pain, persistent vomiting or other concerning symptoms]. Prescriptions: New cefdinir 300 mg capsule 300 mg PO BID Qty: 10 0RF No Action albuterol sulfate 90 mcg/actuation HFA aerosol inhaler 2 puff INHALATION Q4-6H PRN (Reason: bronchospasm) Qty: 8.5 0RF levetiracetam 500 mg tablet 500 mg PO BID Patient Comments: patient states no meds taken today. just discharged from [place]. 07/24/19 sumatriptan succinate 100 mg tablet 100 mg PO PRN PRN (Reason: Migraine Headache) Patient Comments: patient states no meds taken today. just discharged from [place]. 07/24/19 prazosin 1 mg capsule 1 mg PO DAILY Patient Comments: patient states no meds taken today. just discharged from [place]. 07/24/19 quetiapine 200 mg tablet 200 mg PO DAILY Patient Comments: patient states no meds taken today. just discharged from [place]. 07/24/19 divalproex 500 mg tablet,delayed release (DR/EC) 500 mg PO BID Patient Comments: patient states no meds taken today. just discharged from [place]. 07/24/19 pantoprazole 40 mg tablet,delayed release (DR/EC) 40 mg PO BID Patient Comments: patient states no meds taken today. just discharged from [place]. 07/24/19 naproxen 500 mg tablet 500 mg PO BID Patient Comments: patient states no meds taken today. just discharged from [place]. 07/24/19 metoprolol tartrate 25 mg tablet 25 mg PO BID Patient Comments: patient states no meds taken today. just discharged from [place]. 07/24/19 Referrals: Donovan Horn MD [Primary Care Provider] - Stand Alone Forms: Patient Portal/API ED Sign-out <Sergo Jacobs, DO - Last Filed: 09/01/23 14:11> Cosign ED Attending Cosignature Attestation: Dr Jacobs Co-Sign Statement: I was available for consultation during this patient's emergency department visit. This chart is signed by myself for administrative purposes only. I did not have direct contact with this patient during this visit. They were seen independently by the APC.
--- NOTE | 2023-09-01 11:46 | DI.RAD.S_ITS ---
PROCEDURE: XR ANKLE LT MIN 3V INDICATIONS: fall, pain w/ palpation TECHNIQUE: 3 views of the ankle were acquired. COMPARISON: None. FINDINGS: Bones: No fractures or dislocations. Ankle mortise is normally aligned. No suspicious bony lesions. Soft tissues: No tibiotalar joint effusion. Achilles tendon appears normal. IMPRESSION: No evidence acute bony abnormality. If clinical suspicion and/or symptoms persist, further assessment with repeat plain films, or advanced imaging (e.g., CT, MRI, or bone scan) may be helpful for further assessment. Dictated by: Kelton Huang M.D. on 09/01/2023 at 12:34 Approved by: Kelton Huang M.D. on 09/01/2023 at 12:35
--- NOTE | 2023-09-01 12:27 | PC.NURSE ---
patient stated that she felt faint today and passed out. This was not witnessed. She has been alert and oriented since she's been here. She's concerned for her small dog that is with her. She has requested that the staff help her with her dog specifically picking the dog up and placing the dog on her lap for her since she couldn't reach down off the bed and grab her. The patient has been ambulating to the bathroom multiple times independently since shes been here. Her gait is steady and consistent. She does not report feeling dizzy while ambulating.
[2023-09-01 12:35] LABS: Add Manual Diff / Slide Review NO; Basophils Absolute Auto 0 /uL (0-100); Basophils Percent Auto 0.8 % (0-2); Eosinophils Absolute Auto 100 /uL (0-450); Eosinophils Percent Auto 1.9 % (2-4); Hematocrit 33.2 % (36-46); Hemoglobin 11.4 g/dL (12.0-16.0); Lymphocytes Absolute Auto 1700 /uL (1100-4500); Lymphocytes Percent Auto 32.7 % (25-40); Mean Corpuscular HGB Conc 34.3 % (30-36); Mean Corpuscular Hemoglobin 30.2 PG (26-34); Mean Corpuscular Volume 87.8 fL (80-100); Monocytes Absolute Auto 700 /uL (0-900); Monocytes Percent Auto 12.6 % (3-14); Neutrophils Absolute Auto 2800 /uL (1500-7000); Platelet Count 459 X10^3/uL (150-400); Red Blood Cell Count 3.78 X10^6/uL (4.0-5.2); Red Cell Distribution Width 15.2 % (11.6-14.8); White Blood Cell Count 5.3 X10^3/uL (4.5-11.0)
[2023-09-01] MEDS: SODIUM CHLORIDE 0.9% 1,000 ML 1000 ML IV (12:35)
[2023-09-01 12:37] VITALS: BP 111/63; PULSE 71; RESP 14; TEMP 37.2; O2SAT 97
[2023-09-01 12:48] LABS: Bacteria Urine Moderate (10-30); Culture Indicated Urine Specimen Cultured; RBC Urine None Seen (0-5/HPF); Squamous Epithelial Cell Urine 1-5 /HPF (0-5/HPF); WBC Urine 1-5/HPF (0-5/HPF)
[2023-09-01 12:49] LABS: Alanine Aminotransferase 16 IU/L (<35); Albumin Globulin Ratio 1.3 (1.0-2.8); Alkaline Phosphatase 48 U/L (38-126); Aspartate Aminotransferase 27 IU/L (14-36); BUN Creatinine Ratio 25.7 (6-22); Bilirubin Total 0.4 mg/dL (0.2-1.3); Blood Urea Nitrogen 18 mg/dL (7-17); Calcium 9.3 mg/dL (8.4-10.2); Carbon Dioxide 26 mmol/L (22-32); Chloride 99 mmol/L (98-107); Creatine Kinase 56 U/L (30-135); Estimated Glomerular Filt Rate > 60 mL/min (>60); Globulin 3.1 g/dL (1.7-4.1); Glucose 72 mg/dL (80-110); HEMOLYSIS < 15 (0-50); Lipase 130 U/L (23-300); Potassium 4.2 mmol/L (3.4-5.1); Sodium 129 mmol/L (137-145); Total Protein 7.1 g/dL (6.3-8.2)
[2023-09-01 12:52] LABS: UR Morphine/Opiate cutoff 300 Negative (Negative); Ur Creatinine Normal (Normal); Ur Specific Gravity Normal (Normal); Urine Amphetamines Negative (Negative); Urine Barbiturates Negative (Negative); Urine Benzodiazepines Negative (Negative); Urine Cocaine Negative (Negative); Urine MDMA Negative (Negative); Urine Methadone Negative (Negative); Urine Methamphetamines Positive (Negative); Urine Oxycodone Negative (Negative); Urine Phencyclidine Negative (Negative); Urine Tetrahydrocannabinol Positive (Negative); Urine Tricyclic Antidepressant Negative (Negative); Urine pH Normal (Normal)
[2023-09-01 13:00] LABS: Troponin I < 0.012 ng/mL (0.01-0.034)
[2023-09-01] MEDS: IBUPROFEN 400 MG TABLET 800 MG PO (13:05)
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
== END 2023-09-01 13:22 | disposition home or self-care (01) ==
PROVIDERS: Emergency Provider Physician Assistant; PCP Family Medicine
DX: S93.402A Sprain of unspecified ligament of left ankle, initial encounter (principal); M54.2 Cervicalgia; M54.9 Dorsalgia, unspecified; W01.0XXA Fall on same level from slipping, tripping and stumbling without subsequent striking against object, initial encounter
CPT/HCPCS: 36415; 70450; 72125; 73610; 80053; 80305; 81003; 81015; 82550; 83690; 84484; 85025; 87086; 93005; 93010; 96360; 99284

== ENCOUNTER 2023-09-07 16:33 | Emergency (ER) | payer MEDICARE, MEDICAID, SELFPAY ==
[2023-09-07 16:35] VITALS: BP 118/57; PULSE 95; RESP 16; TEMP 36.7; O2SAT 99; BMI 20.5
[2023-09-07 17:07] LABS: Appearance Urine UA CLEAR; Bilirubin Urine UA NEGATIVE (NEGATIVE); Color Urine UA YELLOW; Glucose Urine UA NEGATIVE (Negative); Ketones Urine UA NEGATIVE (NEGATIVE); Leukocyte Esterase Urine UA 2+ (NEGATIVE); Nitrite Urine UA NEGATIVE (Negative); Occult Blood Urine UA NEGATIVE (Negative); Protein Urine UA NEGATIVE (Negative); Urobilinogen Urine UA 0.2 E.U./dL (0.2)
--- NOTE | 2023-09-07 17:07 | ED.RECABL ---
HPI - Recheck/Abnormal Lab/Rx <Ninfa Fleming, DO - Last Filed: 09/08/23 07:48> General Chief Complaint: Recheck/Abnormal Lab/Rx Stated Complaint: Difficulty Breathing Time Seen by Provider: 09/07/23 17:02 Source: patient and EMS Mode of arrival: EMS History of Present Illness HPI narrative: 67-year-old female brought in by EMS with history of bipolar disease and schizophrenia with chronic methamphetamine, tobacco, marijuana and alcohol use. Patient presents today requesting placement at mental health facility. She was seen here on the most recently in July. She was at [facility] earlier today. She initially stated that she had a bed awaiting [facility] but had left [facility]. We contacted [facility] they do not have a bed for her at this time and were unaware of her case. Obtaining records from [facility]. Patient states she has suicidal ideation has thoughts of cutting herself with a razor states she does not have intent she would want to stay alive for her dog who is very special to her. She states last dose of alcohol was last night. Last methamphetamine was a week ago. States she does feel short of breath. Denies chest pain or pressure. No fevers. No cold cough congestion symptoms. No nausea no vomiting. No GI or urinary symptoms. No new swelling in her extremities. She has had several other visits in the area for shortness of breath, chest pain recently. She states she is on medications for her mental health as well as several other medications but does not recall the names. She states she has 4 of them with her but left her bag of other medications somewhere else. Related Data Home Medications Medication Instructions Recorded Confirmed divalproex 500 mg tablet,delayed 500 mg PO BID 07/24/19 07/29/19 release levetiracetam 500 mg tablet 500 mg PO BID 07/24/19 07/29/19 metoprolol tartrate 25 mg tablet 25 mg PO BID 07/24/19 07/29/19 naproxen 500 mg tablet 500 mg PO BID 07/24/19 07/29/19 pantoprazole 40 mg tablet,delayed 40 mg PO BID 07/24/19 07/29/19 release prazosin 1 mg capsule 1 mg PO DAILY 07/24/19 07/29/19 quetiapine 200 mg tablet 200 mg PO DAILY 07/24/19 07/29/19 sumatriptan succinate 100 mg tablet 100 mg PO PRN PRN Migraine Headache 07/24/19 07/29/19 Previous Rx's Medication Instructions Recorded albuterol sulfate 90 mcg/actuation 2 puff inhalation Q4-6H PRN 07/29/19 aerosol inhaler bronchospasm #8.5 grams cefdinir 300 mg capsule 300 mg PO BID #10 caps 09/01/23 Allergies Allergy/AdvReac Type Severity Reaction Status Date / Time morphine [MORPHINE] Allergy Unknown MAKES PAIN Verified 07/29/19 15:29 WORSE codeine Allergy Verified 09/07/23 16:48 prochlorperazine AdvReac Unknown UNCONTROLLABLE Verified 07/29/19 15:29 [From COMPAZINE] SHAKING Review of Systems <Ninfa Fleming DO - Last Filed: 09/08/23 07:48> Review of Systems ROS Unobtainable: All systems reviewed & are unremarkable except as noted in HPI and below Patient History <Ninfa Fleming DO - Last Filed: 09/08/23 07:48> Medical History (Updated 09/07/23 @ 19:19 by Ninfa Grayson MD) Schizophrenia PTSD (post-traumatic stress disorder) Migraine Bipolar disorder Asthma Surgical History H/O: hysterectomy History of cholecystectomy Social History Smoking Status: Current every day smoker Smoking Status: Current every day smoker tobacco type: cigarettes alcohol intake frequency: 3 or more drinks per day Alcohol type: hard liquor Substance Use Type: marijuana and methamphetamine Exam <Ninfa Fleming DO - Last Filed: 09/08/23 07:48> Narrative Exam Narrative: GENERAL: Alert and oriented x three, disheveled female in mild distress. HEENT: Head normocephalic, atraumatic, EOMI, pupils reactive, face symmetric, moist mucous membranes NECK: Supple, full range of motion CARDIOVASCULAR: Regular rate and rhythm without murmurs, rubs or gallops. No JVD. No swelling bilateral lower extremities. RESPIRATORY: Breath sounds equal bilaterally, no wheezes rales or rhonchi. No tachypnea. No accessory muscle use. Patient's speaks in full sentences. ABDOMEN: Soft, nontender. Normoactive bowel sounds all 4 quadrants. No guarding or rebound, rigidity, no mass : No CVA tenderness EXTREMITIES: Normal range of motion, no clubbing or edema. Neurovascularly intact NEUROLOGICAL: Cranial nerves II through XII grossly intact. Moving all extremities SKIN: Warm, dry, no petechiae, no rashes or lesions. PSYCH: Suicidal thoughts, no intent. No homicidal thoughts or ideation. Initial Vital Signs Initial Vital Signs: Vital Signs Temperature 98.1 F 09/07/23 16:35 Pulse Rate 95 H 09/07/23 16:35 Respiratory Rate 16 09/07/23 16:35 Blood Pressure 118/57 L 09/07/23 16:35 Pulse Oximetry 99 09/07/23 16:35 Oxygen Delivery Method Room Air 09/07/23 16:35 <Ninfa Grayson MD - Last Filed: 09/07/23 19:19> Initial Vital Signs Initial Vital Signs: Vital Signs Temperature 98.1 F 09/07/23 16:35 Pulse Rate 95 H 09/07/23 16:35 Respiratory Rate 16 09/07/23 16:35 Blood Pressure 118/57 L 09/07/23 16:35 Pulse Oximetry 99 09/07/23 16:35 Oxygen Delivery Method Room Air 09/07/23 16:35 Course <Ninfa Fleming DO - Last Filed: 09/08/23 07:48> Orders Ordered: Discontinued Medications Acetaminophen (Acetaminophen 325 Mg Tablet) 650 mg PO NOW ONE Stop: 09/07/23 17:18 Last Admin: 09/07/23 17:25 Dose: 650 mg Documented By: WILLIAM Nicotine (Nicotine 21 Mg Patch) 21 mg TOP NOW ONE Stop: 09/07/23 18:59 Last Admin: 09/07/23 19:17 Dose: 21 mg Documented By: GC Vital Signs Vital signs: Vital Signs - 8 hr 09/07/23 16:35 Temperature 98.1 F Pulse Rate 95 H Respiratory Rate 16 Blood Pressure 118/57 L Pulse Oximetry 99 Oxygen Delivery Method Room Air <Ninfa Grayson MD - Last Filed: 09/07/23 19:19> Orders Ordered: Discontinued Medications Acetaminophen (Acetaminophen 325 Mg Tablet) 650 mg PO NOW ONE Stop: 09/07/23 17:18 Last Admin: 09/07/23 17:25 Dose: 650 mg Documented By: WILLIAM Nicotine (Nicotine 21 Mg Patch) 21 mg TOP NOW ONE Stop: 09/07/23 18:59 Last Admin: 09/07/23 19:17 Dose: 21 mg Documented By: GC Vital Signs Vital signs: Vital Signs - 8 hr 09/07/23 16:35 Temperature 98.1 F Pulse Rate 95 H Respiratory Rate 16 Blood Pressure 118/57 L Pulse Oximetry 99 Oxygen Delivery Method Room Air MDM - Recheck/Abnormal Lab/Rx <Ninfa Fleming, - Last Filed: 09/08/23 07:48> Lab Data 09/07/23 17:33 09/07/23 17:33 Labs: Lab Results 09/07/23 09/07/23 09/07/23 Range/Units 16:56 17:33 17:50 WBC 5.5 (4.5-11.0) X10^3/uL RBC 3.98 L (4.0-5.2) X10^6/uL Hgb 11.8 L (12.0-16.0) g/dL Hct 34.6 L (36-46) % MCV 86.8 (80-100) fL MCH 29.5 (26-34) PG MCHC 34.0 (30-36) % RDW 15.1 H (11.6-14.8) % Plt Count 500 H (150-400) X10^3/uL Neut % (Auto) Not Reportable Lymph % (Auto) Not Reportable [place] % (Auto) Not Reportable Eos % (Auto) Not Reportable Baso % (Auto) Not Reportable Lymph # (Auto) Not Reportable [place] # (Auto) Not Reportable Baso # (Auto) Not Reportable Total Counted 100 Seg Neutrophils % 85.0 H (38-70) % Band Neutrophils % 2.0 L (3-7) % Lymphocytes % (Manual) 12.0 L (25-45) % Monocytes % (Manual) 1.0 L (2-11) % Neutrophils # (Manual) 4785 (7653-5316) /uL RBC Morphology Normal morphology Sodium 132 L (137-145) mmol/L Potassium 4.3 (3.4-5.1) mmol/L Chloride 101 (98-107) mmol/L Carbon Dioxide 23 (22-32) mmol/L BUN 17 (7-17) mg/dL Creatinine 0.61 (0.52-1.04) mg/dL Estimated GFR > 60 (>60) mL/min BUN/Creatinine Ratio 27.9 H (6-22) Glucose 117 H (80-110) mg/dL Calcium 9.7 (8.4-10.2) mg/dL Total Bilirubin 0.4 (0.2-1.3) mg/dL AST 24 (14-36) IU/L ALT 17 (<35) IU/L Alkaline Phosphatase 51 (38-126) U/L Total Protein 7.5 (6.3-8.2) g/dL Albumin 4.2 (3.5-5.0) g/dL Globulin 3.3 (1.7-4.1) g/dL Albumin/Globulin Ratio 1.3 (1.0-2.8) TSH 0.148 L (0.47-4.68) uIU/mL Urine Color Yellow Urine Appearance Clear Urine pH 6.0 (4.5-8.0) Ur Specific [place] 1.010 (1.000-1.035) Urine Protein Negative (Negative) Urine Glucose (UA) Negative (Negative) g/dL Urine Ketones Negative (NEGATIVE) Urine Occult Blood Negative (Negative) Urine Nitrate Negative (Negative) Urine Bilirubin Negative (NEGATIVE) Urine Urobilinogen 0.2 (0.2) E.U./dL Ur Leukocyte Esterase 2+ H (NEGATIVE) Urine RBC None seen (0-5/HPF) Urine WBC 5-10/hpf H (0-5/HPF) Ur Squamous Epith Cells 5-10 /hpf H (0-5/HPF) Urine Bacteria Occasional (0-1) (None) Ur Culture Indicated? Specimen cultured U Opiates 300ng/mL cut Negative (Negative) Ur Oxycodone Screen Negative (Negative) Urine Methadone Screen Negative (Negative) Ur Barbiturates Screen Negative (Negative) U Tricyclic Antidepress Positive H (Negative) Ur Phencyclidine Scrn Negative (Negative) Ur Amphetamines Screen Negative (Negative) U Methamphetamines Scrn Negative (Negative) Ur MDMA Scrn (Ecstasy) Negative (Negative) U Benzodiazepines Scrn Negative (Negative) Urine Cocaine Screen Negative (Negative) U Marijuana (THC) Screen Positive H (Negative) Ethyl Alcohol < 10 ( - 10) mg/dL SARS-CoV-2 (PCR) Negative (Negative) ECG Data Attestation: I personally reviewed and interpreted this ECG as follows: Prior ECG tracings: available for review Interpretation: Sinus rhythm rate of 90 ID 170 QRS is 78 QTC 450. No acute ST elevation or depression noted. Patient has prior from 09/01/2023 which appears no significant change. MDM Narrative Medical decision making narrative: 67-year-old female presents with complaint of suicidal ideation without intent. Patient is currently voluntary. States she does not wish to harm herself. She is interested in voluntary placement at this time. Patient does have some complaint of shortness of breath, had labs including chest x-ray EKG, and screening labs. EKG shows no acute change. Chest x-ray shows no change. Labs are currently pending. Patient signed out to Dr. Grayson while awaiting workup for medical clearance and possible placement for suicidal ideation. Patient is voluntary if she chooses to leave I do feel she is safe to do so at this time. 1918 (Kenan) -patient medically cleared. I accepted to [facility] on voluntary basis. <Ninfa Grayson MD - Last Filed: 09/07/23 19:19> Lab Data Labs: Lab Results 09/07/23 09/07/23 09/07/23 Range/Units 16:56 17:33 17:50 WBC 5.5 (4.5-11.0) X10^3/uL RBC 3.98 L (4.0-5.2) X10^6/uL Hgb 11.8 L (12.0-16.0) g/dL Hct 34.6 L (36-46) % MCV 86.8 (80-100) fL MCH 29.5 (26-34) PG MCHC 34.0 (30-36) % RDW 15.1 H (11.6-14.8) % Plt Count 500 H (150-400) X10^3/uL Neut % (Auto) Not Reportable Lymph % (Auto) Not Reportable [place] % (Auto) Not Reportable Eos % (Auto) Not Reportable Baso % (Auto) Not Reportable Lymph # (Auto) Not Reportable [place] # (Auto) Not Reportable Baso # (Auto) Not Reportable Total Counted 100 Seg Neutrophils % 85.0 H (38-70) % Band Neutrophils % 2.0 L (3-7) % Lymphocytes % (Manual) 12.0 L (25-45) % Monocytes % (Manual) 1.0 L (2-11) % Neutrophils # (Manual) 4785 (6505-2301) /uL RBC Morphology Normal morphology Sodium 132 L (137-145) mmol/L Potassium 4.3 (3.4-5.1) mmol/L Chloride 101 (98-107) mmol/L Carbon Dioxide 23 (22-32) mmol/L BUN 17 (7-17) mg/dL Creatinine 0.61 (0.52-1.04) mg/dL Estimated GFR > 60 (>60) mL/min BUN/Creatinine Ratio 27.9 H (6-22) Glucose 117 H (80-110) mg/dL Calcium 9.7 (8.4-10.2) mg/dL Total Bilirubin 0.4 (0.2-1.3) mg/dL AST 24 (14-36) IU/L ALT 17 (<35) IU/L Alkaline Phosphatase 51 (38-126) U/L Total Protein 7.5 (6.3-8.2) g/dL Albumin 4.2 (3.5-5.0) g/dL Globulin 3.3 (1.7-4.1) g/dL Albumin/Globulin Ratio 1.3 (1.0-2.8) TSH 0.148 L (0.47-4.68) uIU/mL Urine Color Yellow Urine Appearance Clear Urine pH 6.0 (4.5-8.0) Ur Specific [place] 1.010 (1.000-1.035) Urine Protein Negative (Negative) Urine Glucose (UA) Negative (Negative) g/dL Urine Ketones Negative (NEGATIVE) Urine Occult Blood Negative (Negative) Urine Nitrate Negative (Negative) Urine Bilirubin Negative (NEGATIVE) Urine Urobilinogen 0.2 (0.2) E.U./dL Ur Leukocyte Esterase 2+ H (NEGATIVE) Urine RBC None seen (0-5/HPF) Urine WBC 5-10/hpf H (0-5/HPF) Ur Squamous Epith Cells 5-10 /hpf H (0-5/HPF) Urine Bacteria Occasional (0-1) (None) Ur Culture Indicated? Specimen cultured U Opiates 300ng/mL cut Negative (Negative) Ur Oxycodone Screen Negative (Negative) Urine Methadone Screen Negative (Negative) Ur Barbiturates Screen Negative (Negative) U Tricyclic Antidepress Positive H (Negative) Ur Phencyclidine Scrn Negative (Negative) Ur Amphetamines Screen Negative (Negative) U Methamphetamines Scrn Negative (Negative) Ur MDMA Scrn (Ecstasy) Negative (Negative) U Benzodiazepines Scrn Negative (Negative) Urine Cocaine Screen Negative (Negative) U Marijuana (THC) Screen Positive H (Negative) Ethyl Alcohol < 10 ( - 10) mg/dL SARS-CoV-2 (PCR) Negative (Negative) MDM Narrative Medical decision making narrative: 67-year-old female presents with complaint of suicidal ideation without intent. Patient is currently voluntary. States she does not wish to harm herself. She is interested in voluntary placement at this time. Patient does have some complaint of shortness of breath, had labs including chest x-ray EKG, troponin as well as screening labs. Patient signed out to Dr. Grayson while awaiting workup for medical clearance and possible placement for suicidal ideation. Patient is voluntary if she chooses to leave I do feel she is safe to do so at this time. 1918 (Kenan) -patient medically cleared. I accepted to [facility] on voluntary basis. Discharge Plan Departure Patient Disposition: Xfer Psychiatric Hosp Clinical Impression: Depression Prescriptions: No Action albuterol sulfate 90 mcg/actuation HFA aerosol inhaler 2 puff INHALATION Q4-6H PRN (Reason: bronchospasm) Qty: 8.5 0RF levetiracetam 500 mg tablet 500 mg PO BID Patient Comments: patient states no meds taken today. just discharged from [facility]. 07/24/19 sumatriptan succinate 100 mg tablet 100 mg PO PRN PRN (Reason: Migraine Headache) Patient Comments: patient states no meds taken today. just discharged from [facility]. 07/24/19 prazosin 1 mg capsule 1 mg PO DAILY Patient Comments: patient states no meds taken today. just discharged from [facility]. 07/24/19 quetiapine 200 mg tablet 200 mg PO DAILY Patient Comments: patient states no meds taken today. just discharged from [facility]. 07/24/19 divalproex 500 mg tablet,delayed release (DR/EC) 500 mg PO BID Patient Comments: patient states no meds taken today. just discharged from [facility]. 07/24/19 pantoprazole 40 mg tablet,delayed release (DR/EC) 40 mg PO BID Patient Comments: patient states no meds taken today. just discharged from [facility]. 07/24/19 naproxen 500 mg tablet 500 mg PO BID Patient Comments: patient states no meds taken today. just discharged from [facility]. 07/24/19 metoprolol tartrate 25 mg tablet 25 mg PO BID Patient Comments: patient states no meds taken today. just discharged from [facility]. 07/24/19 cefdinir 300 mg capsule 300 mg PO BID Qty: 10 0RF Referrals: Donovan Horn MD [Primary Care Provider] -
[2023-09-07 17:08] LABS: UR Morphine/Opiate cutoff 300 Negative (Negative); Ur Creatinine Normal (Normal); Ur Specific Gravity Normal (Normal); Urine Amphetamines Negative (Negative); Urine Barbiturates Negative (Negative); Urine Benzodiazepines Negative (Negative); Urine Cocaine Negative (Negative); Urine MDMA Negative (Negative); Urine Methadone Negative (Negative); Urine Methamphetamines Negative (Negative); Urine Oxycodone Negative (Negative); Urine Phencyclidine Negative (Negative); Urine Tetrahydrocannabinol Positive (Negative); Urine Tricyclic Antidepressant Positive (Negative); Urine pH Normal (Normal)
[2023-09-07 17:12] LABS: Bacteria Urine Occasional (0-1); Culture Indicated Urine Specimen Cultured; RBC Urine None Seen (0-5/HPF); Squamous Epithelial Cell Urine 5-10 /HPF (0-5/HPF); WBC Urine 5-10/HPF (0-5/HPF)
--- NOTE | 2023-09-07 17:17 | DI.RAD.S_ITS ---
PROCEDURE: XR CHEST 1V INDICATIONS: Short of breath TECHNIQUE: One view of the chest was acquired. COMPARISON: , CT, CT ABDOMEN PELVIS WITHOUT CONTRAST, 09/07/2023, 11:24. , CR, XR CHEST 1 VIEW, 09/07/2023, 9:29. FINDINGS: Surgical changes and devices: Right upper quadrant postoperative clips are seen. Lungs and pleura: An incomplete inspiratory result is noted, causing a crowded appearance to the lung markings. No focal infiltrates are seen. No pneumothorax or significant pleural effusions are seen. Mediastinum: Mediastinal contours appear normal. Heart size is normal. Bones and chest wall: No suspicious bony lesions. Age-appropriate bony degenerative changes are seen. Overlying soft tissues appear unremarkable. IMPRESSION: Low lung volumes, without an acute abnormality seen by plain film. Postoperative and degenerative changes are seen. Dictated by: Christopher Lynn M.D. on 09/07/2023 at 17:11 Approved by: Christopher Lynn M.D. on 09/07/2023 at 17:12
[2023-09-07] MEDS: ACETAMINOPHEN 325 MG TABLET 650 MG PO (17:25)
[2023-09-07 17:43] LABS: Hematocrit 34.6 % (36-46); Hemoglobin 11.8 g/dL (12.0-16.0); Mean Corpuscular Hemoglobin 29.5 PG (26-34); Mean Corpuscular Volume 86.8 fL (80-100); Platelet Count 500 X10^3/uL (150-400); Red Blood Cell Count 3.98 X10^6/uL (4.0-5.2); Red Cell Distribution Width 15.1 % (11.6-14.8); White Blood Cell Count 5.5 X10^3/uL (4.5-11.0)
[2023-09-07 17:50] LABS: Add Manual Diff / Slide Review YES
[2023-09-07 17:56] LABS: Alanine Aminotransferase 17 IU/L (<35); Albumin 4.2 g/dL (3.5-5.0); Albumin Globulin Ratio 1.3 (1.0-2.8); Alkaline Phosphatase 51 U/L (38-126); Aspartate Aminotransferase 24 IU/L (14-36); BUN Creatinine Ratio 27.9 (6-22); Bilirubin Total 0.4 mg/dL (0.2-1.3); Blood Urea Nitrogen 17 mg/dL (7-17); Calcium 9.7 mg/dL (8.4-10.2); Carbon Dioxide 23 mmol/L (22-32); Chloride 101 mmol/L (98-107); Estimated Glomerular Filt Rate > 60 mL/min (>60); Ethanol (ETOH) < 10 mg/dL; Globulin 3.3 g/dL (1.7-4.1); Glucose 117 mg/dL (80-110); HEMOLYSIS < 15 (0-50); Potassium 4.3 mmol/L (3.4-5.1); Sodium 132 mmol/L (137-145); Total Protein 7.5 g/dL (6.3-8.2)
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
[2023-09-07 18:00] LABS: Neutrophils Absolute Manual 4785 /uL (3000-5900); Total Cells Counted 100
[2023-09-07 18:02] LABS: RBC Morphology Normal Morphology
[2023-09-07 18:27] LABS: Thyroid Stimulating Hormone 0.148 uIU/mL (0.47-4.68)
[2023-09-07 18:32] LABS: COVID19 -Nasal RAPID Negative (Negative)
--- NOTE | 2023-09-07 19:11 | CM.SWNOTE ---
LEASE EXAMINER Note LEASE EXAMINER calls [facility], it is reported they have beds and can accept patient after clinical review. Intake- [facility], accepting provider AMBROSE Orantes. Patient is accepted to unit 1 [facility] RN-RN is [phone]. It is reported that they can accept patient at any time. LEASE EXAMINER calls [facility] transport and schedules grape picker for 1939. LEASE EXAMINER reviews this with patient, she is voluntary and indicates understanding. LEASE EXAMINER calls [facility] regarding patient's transport time. Plan: patient to transfer to [facility] via S this evening. Dilcia Engle, POLYSOMNOGRAPHY TECH
[2023-09-07] MEDS: NICOTINE 21 MG PATCH TOP (19:17)
== END 2023-09-07 20:32 ==
PROVIDERS: Emergency Medicine; Emergency Provider Emergency Medicine; PCP Family Medicine
DX: F32.A Depression, unspecified (principal); R45.851 Suicidal ideations; Z11.52 Encounter for screening for COVID-19; R06.02 Shortness of breath; R03.1 Nonspecific low blood-pressure reading
CPT/HCPCS: 36415; 71045; 80053; 80305; 80320; 81001; 84443; 85007; 85025; 87086; 87635; 93005; 93010; 99284; C9803

== ENCOUNTER 2023-09-13 13:45 | Emergency (ER) | payer MEDICARE, MEDICAID, SELFPAY ==
[2023-09-13 13:31] VITALS: BP 141/81; PULSE 80; RESP 18; TEMP 36.7; O2SAT 98; BMI 21.1
--- NOTE | 2023-09-13 13:32 | DI.CT.S_ITS ---
PROCEDURE: CT CERVICAL SPINE WO CON INDICATIONS: GLF, 07/26 NECK PAIN TECHNIQUE: Noncontrast 3 mm thick sections acquired from the skull base to the T4 level. Sagittal and coronal reformats were then constructed. For radiation dose reduction, the following was used: automated exposure control, adjustment of mA and/or kV according to patient size. COMPARISON: [facility], CT, CT CERVICAL SPINE WO CON, 09/01/2023, 11:48. FINDINGS: Image quality: Patient motion artifact. Bones: No fractures or dislocations. Visualized superior ribs are intact. There is multilevel degenerative change with significant multilevel uncovertebral joint hypertrophy resulting in multilevel bony foraminal narrowing. Soft tissues: Prevertebral soft tissues are normal in thickness. No paravertebral hematomas. No apical pneumothoraces. IMPRESSION: Images are somewhat diminished by patient motion artifact. No displaced cervical fractures or dislocations are identified. There is cervical spondylosis with multilevel bony foraminal narrowing. Dictated by: Kelton Huang M.D. on 09/13/2023 at 13:59 Approved by: Kelton Huang M.D. on 09/13/2023 at 14:01
--- NOTE | 2023-09-13 13:32 | DI.RAD.S_ITS ---
PROCEDURE: XR FOOT LT MIN 3V INDICATIONS: GLF, FOOT PAIN TECHNIQUE: 3 views of the foot were acquired. COMPARISON: [facility], CR, XR FOOT 3+ VIEWS LEFT, 07/25/2023, 8:49. FINDINGS: Bones: Postsurgical changes are seen in the 1st metatarsal with a stable metal screw. No acute fractures or dislocations. No suspicious bony lesions. Generalized osteopenia. Soft tissues: No tibiotalar joint effusion. Achilles tendon appears normal. IMPRESSION: No acute osseous abnormality. If clinical suspicion and/or symptoms persist, additional imaging with repeat plain films, or advanced imaging (e.g. CT, MRI) may be helpful for further assessment. Approved by: Willem Nuno M.D. on 09/13/2023 at 14:25
--- NOTE | 2023-09-13 13:32 | DI.RAD.S_ITS ---
PROCEDURE: XR CHEST 1V INDICATIONS: GLF, PAIN TECHNIQUE: One view of the chest was acquired. COMPARISON: [facility], , XR CHEST 1V, 09/07/2023, 17:47. FINDINGS: Surgical changes and devices: Surgical clips are seen in the right upper abdomen. Lungs and pleura: Lungs are clear. No pleural effusions or pneumothorax. Mediastinum: Mediastinal contours appear normal. Heart size is normal. Bones and chest wall: No suspicious bony lesions. Overlying soft tissues appear unremarkable. IMPRESSION: No acute cardiopulmonary abnormality is seen. Approved by: Willem Nuno M.D. on 09/13/2023 at 14:23
--- NOTE | 2023-09-13 13:32 | DI.CT.S_ITS ---
PROCEDURE: CT HEAD/BRAIN WO CON INDICATIONS: GLF WITH LOC TECHNIQUE: Noncontrast 4.5 mm thick angled axial sections acquired from the foramen magnum to the vertex, with coronal and sagittal reformats. For radiation dose reduction, the following was used: automated exposure control, adjustment of mA and/or kV according to patient size. COMPARISON: [facility], CT, CT HEAD/BRAIN WO CON, 09/01/2023, 11:48. FINDINGS: Image quality: Excellent. CSF spaces: Basal cisterns are patent. No extra-axial fluid collections. Ventricles are normal in size and shape. Brain: No midline shift. No intracranial masses or hemorrhage. Frederick-white matter interface is normal. Skull and face: Calvarium and visualized facial bones are intact, without suspicious lesions. Sinuses: Minimal left maxillary sinus dependent tissue period Visualized sinuses and mastoids are otherwise clear. IMPRESSION: No acute intracranial pathology. Minimal left maxillary sinus disease. Dictated by: Kelton Huang M.D. on 09/13/2023 at 14:02 Approved by: Kelton Huang M.D. on 09/13/2023 at 14:02
--- NOTE | 2023-09-13 13:32 | DI.RAD.S_ITS ---
PROCEDURE: XR KNEE LT 3V INDICATIONS: GLF, KNEE PAIN TECHNIQUE: Three views of the knee were acquired. COMPARISON: None. FINDINGS: Bones: No acute fractures or dislocations. No suspicious bony lesions. Soft tissues: No joint effusion. No suspicious soft tissue calcifications. IMPRESSION: No acute osseous abnormality. If clinical suspicion and/or symptoms persist, additional imaging with repeat plain films, or advanced imaging (e.g. CT, MRI) may be helpful for further assessment. Approved by: Willem Nuno M.D. on 09/13/2023 at 14:24
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
[2023-09-13] MEDS: ACETAMINOPHEN 325 MG TABLET 975 MG PO (13:51)
--- NOTE | 2023-09-13 14:02 | PC.NURSE ---
pt removed own c collar in room despite education. Dr. Grayson aware. Pt also ambulated to BR with steady independent gait. no acute medical distress.
[2023-09-13 14:35] VITALS: BP 137/72; PULSE 78; O2SAT 98
== END 2023-09-13 14:35 | disposition home or self-care (01) ==
PROVIDERS: Emergency Provider Emergency Medicine; PCP Family Medicine
DX: M54.2 Cervicalgia (principal); M25.562 Pain in left knee; M79.672 Pain in left foot; R51.9 Headache, unspecified; R07.9 Chest pain, unspecified
CPT/HCPCS: 70450; 71045; 72125; 73562; 73630; 93005; 99281; 99282; 99283; 99284

== ENCOUNTER 2023-09-13 16:58 | Emergency (ER) | payer MEDICARE, MEDICAID, SELFPAY ==
[2023-09-13 17:02] VITALS: BP 136/83; PULSE 77; RESP 20; TEMP 36.6; O2SAT 100; BMI 21.1
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
== END 2023-09-13 17:21 | disposition home or self-care (01) ==
LOC: ED 17:12
PROVIDERS: Emergency Provider Emergency Medicine; PCP Family Medicine
DX: R07.9 Chest pain, unspecified (principal)
CPT/HCPCS: 93005

== ENCOUNTER 2023-09-18 18:07 | Emergency (ER) | payer MEDICARE, MEDICAID, SELFPAY ==
[2023-09-18] VITALS (7 sets, daily range): BP systolic 98–131; BP diastolic 56–73; PULSE 78–92; RESP 18; TEMP 36.6; O2SAT 98–100; BMI 21.8
--- NOTE | 2023-09-18 18:40 | DI.RAD.S_ITS ---
PROCEDURE: XR CHEST 2V INDICATIONS: chest pain TECHNIQUE: 2 views of the chest were acquired. COMPARISON: [facility], CR, XR CHEST 1V, 09/13/2023, 13:40. FINDINGS: Surgical changes and devices: Cholecystectomy clips Lungs and pleura: Lungs are clear. No pleural effusions or pneumothorax. Mediastinum: Mediastinal contours are normal. Heart size is normal. Bones and chest wall: No suspicious bony abnormalities. Soft tissues appear unremarkable. IMPRESSION: No acute cardiopulmonary abnormality is seen. Dictated by: Kelton Huang M.D. on 09/18/2023 at 19:31 Approved by: Kelton Huang M.D. on 09/18/2023 at 19:32
[2023-09-18 19:08] LABS: Add Manual Diff / Slide Review NO; Basophils Absolute Auto 0 /uL (0-100); Basophils Percent Auto 0.8 % (0-2); Eosinophils Absolute Auto 100 /uL (0-450); Eosinophils Percent Auto 1.3 % (2-4); Hematocrit 32.6 % (36-46); Hemoglobin 11.4 g/dL (12.0-16.0); Lymphocytes Absolute Auto 1800 /uL (1100-4500); Lymphocytes Percent Auto 46.9 % (25-40); Mean Corpuscular HGB Conc 34.8 % (30-36); Mean Corpuscular Hemoglobin 30.5 PG (26-34); Mean Corpuscular Volume 87.5 fL (80-100); Monocytes Absolute Auto 400 /uL (0-900); Monocytes Percent Auto 11.4 % (3-14); Neutrophils Absolute Auto 1600 /uL (1500-7000); Neutrophils Percent Auto 39.6 % (50-75); Platelet Count 466 X10^3/uL (150-400); Red Blood Cell Count 3.73 X10^6/uL (4.0-5.2); Red Cell Distribution Width 15.3 % (11.6-14.8); White Blood Cell Count 3.9 X10^3/uL (4.5-11.0)
[2023-09-18] MEDS: SODIUM CHLORIDE 0.9% 1,000 ML 1000 ML IV (19:08)
[2023-09-18 19:12] LABS: Creatine Kinase 48 U/L (30-135)
[2023-09-18 19:14] LABS: Alanine Aminotransferase 23 IU/L (<35); Albumin 4.1 g/dL (3.5-5.0); Albumin Globulin Ratio 1.4 (1.0-2.8); Alkaline Phosphatase 45 U/L (38-126); Aspartate Aminotransferase 29 IU/L (14-36); BUN Creatinine Ratio 23.3 (6-22); Bilirubin Total 0.3 mg/dL (0.2-1.3); Blood Urea Nitrogen 14 mg/dL (7-17); Calcium 9.2 mg/dL (8.4-10.2); Carbon Dioxide 21 mmol/L (22-32); Chloride 105 mmol/L (98-107); Estimated Glomerular Filt Rate > 60 mL/min (>60); Globulin 2.9 g/dL (1.7-4.1); Glucose 81 mg/dL (80-110); HEMOLYSIS < 15 (0-50); Potassium 3.5 mmol/L (3.4-5.1); Sodium 135 mmol/L (137-145)
[2023-09-18 19:25] LABS: Troponin I < 0.012 ng/mL (0.01-0.034)
[2023-09-18 19:41] LABS: Ur Creatinine Normal (Normal); Ur Specific Gravity Normal (Normal); Urine pH Normal (Normal)
[2023-09-18 19:42] LABS: UR Morphine/Opiate cutoff 300 Positive (Negative); Urine Amphetamines Negative (Negative); Urine Cocaine Negative (Negative); Urine Methamphetamines Positive (Negative); Urine Tetrahydrocannabinol Positive (Negative)
[2023-09-18 19:43] LABS: Urine Barbiturates Negative (Negative); Urine Benzodiazepines Negative (Negative); Urine MDMA Negative (Negative); Urine Methadone Negative (Negative); Urine Oxycodone Negative (Negative); Urine Phencyclidine Negative (Negative); Urine Tricyclic Antidepressant Positive (Negative)
--- NOTE | 2023-09-18 19:54 | ED.URI ---
HPI - URI/Sore Throat General Chief Complaint: Upper Respiratory Symptoms Stated Complaint: pain with inspiration Time Seen by Provider: 09/18/23 18:15 Source: patient and EMS Mode of arrival: EMS History of Present Illness HPI Narrative: Patient is a 67-year-old female history of bipolar disease, schizophrenia, chronic methamphetamine use, tobacco marijuana and alcohol use, multiple ED visits presenting with her 5th visit to this ED since September 01 however reports state that she has been seen does not of times at various hospitals with varying complaints. Today she presents with chest pain, all over body aches broken nose she feels like she is congested. She is noted to be hypotensive. She has no cough sometimes hurts when she breathes obvious chest pain now she is here with her dog. Related Data Home Medications Medication Instructions Recorded Confirmed divalproex 500 mg tablet,delayed 500 mg PO BID 07/24/19 07/29/19 release levetiracetam 500 mg tablet 500 mg PO BID 07/24/19 07/29/19 metoprolol tartrate 25 mg tablet 25 mg PO BID 07/24/19 07/29/19 naproxen 500 mg tablet 500 mg PO BID 07/24/19 07/29/19 pantoprazole 40 mg tablet,delayed 40 mg PO BID 07/24/19 07/29/19 release prazosin 1 mg capsule 1 mg PO DAILY 07/24/19 07/29/19 quetiapine 200 mg tablet 200 mg PO DAILY 07/24/19 07/29/19 sumatriptan succinate 100 mg tablet 100 mg PO PRN PRN Migraine Headache 07/24/19 07/29/19 Previous Rx's Medication Instructions Recorded albuterol sulfate 90 mcg/actuation 2 puff inhalation Q4-6H PRN 07/29/19 aerosol inhaler bronchospasm #8.5 grams cefdinir 300 mg capsule 300 mg PO BID #10 caps 09/01/23 Allergies Allergy/AdvReac Type Severity Reaction Status Date / Time morphine [MORPHINE] Allergy Unknown MAKES PAIN Verified 07/29/19 15:29 WORSE codeine Allergy Verified 09/07/23 16:48 prochlorperazine AdvReac Unknown UNCONTROLLABLE Verified 07/29/19 15:29 [From COMPAZINE] SHAKING Patient History Medical History (Updated 09/18/23 @ 20:13 by Amanda Ornelas DO) Schizophrenia PTSD (post-traumatic stress disorder) Migraine Bipolar disorder Asthma Surgical History H/O: hysterectomy History of cholecystectomy Social History Smoking Status: Current every day smoker Smoking Status: Current every day smoker tobacco type: cigarettes alcohol intake frequency: 3 or more drinks per day Alcohol type: hard liquor Substance Use Type: marijuana and methamphetamine Exam Initial Vital Signs Initial Vital Signs: Vital Signs Temperature 97.8 F 09/18/23 18:13 Pulse Rate 78 09/18/23 18:13 Respiratory Rate 18 09/18/23 18:13 Blood Pressure 98/61 09/18/23 18:13 Pulse Oximetry 98 09/18/23 18:13 Oxygen Delivery Method Room Air 09/18/23 18:13 GENERAL: Awake alert female no acute distress HEENT: Head atraumatic,EOMI, pupils initially pinpoint sluggish, face symmetric, moist mucous membranes CARDIOVASCULAR: Regular rate and rhythm without murmurs, rubs or gallops. RESPIRATORY: Breath sounds equal bilaterally, no wheezes rales or rhonchi. ABDOMEN: Soft, nontender. Normoactive bowel sounds all 4 quadrants. No guarding or rebound. EXTREMITIES: Normal range of motion, no clubbing or edema. Neurovascularly intact NEUROLOGICAL: Alert and oriented x4. No cranial nerve deficits SKIN: Warm, dry, no laceration, no petechiae, no rashes or lesions. Course Orders Ordered: ED Orders 09/18/23 18:40 Chest [XR chest 2V] Stat EKG-12 Lead Stat 09/18/23 18:50 CBC Auto Diff [Complete Blood Count AUTO DIFF] Stat CMP [Comprehensive Metabolic Panel] Stat Troponin & CK Cardiac Panel Stat 09/18/23 19:30 Urine Drug Screen, Rapid Stat Discontinued Medications Sodium Chloride (Normal Saline 0.9%) 1,000 mls @ 1,000 mls/hr IV BOLUS ONE Stop: 09/18/23 19:55 Last Infusion: 09/18/23 20:16 Dose: Infused Documented By: Admin: 09/18/23 19:08 Dose: 1,000 mls/hr Documented By: JUAN RAMON Ketorolac Tromethamine (Ketorolac 30 Mg/Ml Vial) 15 mg IV NOW ONE Stop: 09/18/23 20:08 Last Admin: 09/18/23 20:11 Dose: 15 mg Documented By: MIRIAM Vital Signs Vital signs: Vital Signs - 8 hr 09/18/23 18:13 09/18/23 18:51 09/18/23 19:02 Temperature 97.8 F Pulse Rate 78 82 87 Respiratory Rate 18 Blood Pressure 98/61 Pulse Oximetry 98 100 99 Oxygen Delivery Method Room Air 09/18/23 19:03 09/18/23 19:03 09/18/23 19:33 Temperature Pulse Rate 90 84 Respiratory Rate Blood Pressure 106/56 L Pulse Oximetry 98 99 Oxygen Delivery Method 09/18/23 19:36 09/18/23 19:36 09/18/23 20:00 Temperature Pulse Rate 92 H 86 Respiratory Rate Blood Pressure 131/57 L Pulse Oximetry 99 100 Oxygen Delivery Method 09/18/23 20:00 Temperature Pulse Rate Respiratory Rate Blood Pressure 113/73 Pulse Oximetry Oxygen Delivery Method MDM - URI/Sore Throat Lab Data 09/18/23 18:50 09/18/23 18:50 Labs: Lab Results 09/18/23 09/18/23 Range/Units 18:50 19:30 WBC 3.9 L (4.5-11.0) X10^3/uL RBC 3.73 L (4.0-5.2) X10^6/uL Hgb 11.4 L (12.0-16.0) g/dL Hct 32.6 L (36-46) % MCV 87.5 (80-100) fL MCH 30.5 (26-34) PG MCHC 34.8 (30-36) % RDW 15.3 H (11.6-14.8) % Plt Count 466 H (150-400) X10^3/uL Neut % (Auto) 39.6 L (50-75) % Lymph % (Auto) 46.9 H (25-40) % [place] % (Auto) 11.4 (3-14) % Eos % (Auto) 1.3 L (2-4) % Baso % (Auto) 0.8 (0-2) % Neut # (Auto) 1600 (7521-2146) /uL Lymph # (Auto) 1800 (5906-9511) /uL [place] # (Auto) 400 (0-900) /uL Eos # (Auto) 100 (0-450) /uL Baso # (Auto) 0 (0-100) /uL Sodium 135 L (137-145) mmol/L Potassium 3.5 (3.4-5.1) mmol/L Chloride 105 (98-107) mmol/L Carbon Dioxide 21 L (22-32) mmol/L BUN 14 (7-17) mg/dL Creatinine 0.60 (0.52-1.04) mg/dL Estimated GFR > 60 (>60) mL/min BUN/Creatinine Ratio 23.3 H (6-22) Glucose 81 (80-110) mg/dL Calcium 9.2 (8.4-10.2) mg/dL Total Bilirubin 0.3 (0.2-1.3) mg/dL AST 29 (14-36) IU/L ALT 23 (<35) IU/L Alkaline Phosphatase 45 (38-126) U/L Total Creatine Kinase 48 (30-135) U/L Troponin I < 0.012 (0.01-0.034) ng/mL Total Protein 7.0 (6.3-8.2) g/dL Albumin 4.1 (3.5-5.0) g/dL Globulin 2.9 (1.7-4.1) g/dL Albumin/Globulin Ratio 1.4 (1.0-2.8) U Opiates 300ng/mL cut Positive H (Negative) Ur Oxycodone Screen Negative (Negative) Urine Methadone Screen Negative (Negative) Ur Barbiturates Screen Negative (Negative) U Tricyclic Antidepress Positive H (Negative) Ur Phencyclidine Scrn Negative (Negative) Ur Amphetamines Screen Negative (Negative) U Methamphetamines Scrn Positive H (Negative) Ur MDMA Scrn (Ecstasy) Negative (Negative) U Benzodiazepines Scrn Negative (Negative) Urine Cocaine Screen Negative (Negative) U Marijuana (THC) Screen Positive H (Negative) Imaging Data Chest x-ray: Radiologist's Impression: PROCEDURE: XR CHEST 2V INDICATIONS: chest pain TECHNIQUE: 2 views of the chest were acquired. COMPARISON: [facility], CR, XR CHEST 1V, 09/13/2023, 13:40. FINDINGS: Surgical changes and devices: Cholecystectomy clips Lungs and pleura: Lungs are clear. No pleural effusions or pneumothorax. Mediastinum: Mediastinal contours are normal. Heart size is normal. Bones and chest wall: No suspicious bony abnormalities. Soft tissues appear unremarkable. IMPRESSION: No acute cardiopulmonary abnormality is seen. Dictated by: Kelton Huang M.D. on 09/18/2023 at 19:31 Approved by: Kelton Huang M.D. on 09/18/2023 at 19:32 ECG Data Interpretation: Normal sinus rhythm rate 88 OR interval 180 QRS [address] changes MDM Narrative Medical decision making narrative: Patient blood pressure initially low which is not normal for her. She is given IV fluids becomes more awake it admits to drinking alcohol drug screen positive for opiates amphetamines and tricyclics. She denies any opiate use. She is more awake she is in her active blood pressure better after IV fluids. Chest x-ray is negative blood work overall reassuring no evidence of infection troponin is negative. She complains of all-over body aches but is afebrile. Possible viral syndrome. Overall appears well nontoxic. She is a steady gait clinically sober Discharge Plan Departure Patient Disposition: Home Clinical Impression: Acute viral syndrome, Polysubstance use disorder Instructions: DI for Viral Upper Respiratory Infection -- Adult Activity Restrictions/Additional Instructions: *You have been diagnosed with you likely have a viral syndrome *What to do: I recommends stop using opiates meth amphetamines and alcohol I recommend going to detox *Continue to take medications as directed *Follow up with your primary care provider in 2-3 days or call [phone] *Return to ER if you should have any new, worsening or concerning symptoms Prescriptions: No Action albuterol sulfate 90 mcg/actuation HFA aerosol inhaler 2 puff INHALATION Q4-6H PRN (Reason: bronchospasm) Qty: 8.5 0RF levetiracetam 500 mg tablet 500 mg PO BID Patient Comments: patient states no meds taken today. just discharged from [place]. 07/24/19 sumatriptan succinate 100 mg tablet 100 mg PO PRN PRN (Reason: Migraine Headache) Patient Comments: patient states no meds taken today. just discharged from [place]. 07/24/19 prazosin 1 mg capsule 1 mg PO DAILY Patient Comments: patient states no meds taken today. just discharged from [place]. 07/24/19 quetiapine 200 mg tablet 200 mg PO DAILY Patient Comments: patient states no meds taken today. just discharged from [place]. 07/24/19 divalproex 500 mg tablet,delayed release (DR/EC) 500 mg PO BID Patient Comments: patient states no meds taken today. just discharged from [place]. 07/24/19 pantoprazole 40 mg tablet,delayed release (DR/EC) 40 mg PO BID Patient Comments: patient states no meds taken today. just discharged from [place]. 07/24/19 naproxen 500 mg tablet 500 mg PO BID Patient Comments: patient states no meds taken today. just discharged from [place]. 07/24/19 metoprolol tartrate 25 mg tablet 25 mg PO BID Patient Comments: patient states no meds taken today. just discharged from [place]. 07/24/19 cefdinir 300 mg capsule 300 mg PO BID Qty: 10 0RF Referrals: Donovan Horn MD [Primary Care Provider] - Stand Alone Forms: Patient Portal/API
[2023-09-18] MEDS: KETOROLAC 30 MG/ML VIAL 15 MG IV (20:11)
== END 2023-09-18 20:24 | disposition home or self-care (01) ==
PROVIDERS: Emergency Provider Emergency Medicine; PCP Family Medicine
DX: B34.9 Viral infection, unspecified (principal); F19.90 Other psychoactive substance use, unspecified, uncomplicated
CPT/HCPCS: 36415; 71046; 80053; 80305; 82550; 84484; 85025; 93005; 96374; 99284; J1885

== ENCOUNTER 2023-09-22 11:23 | Emergency (ER) | payer MEDICARE, MEDICAID, SELFPAY ==
[2023-09-22 11:32] VITALS: BP 125/66; PULSE 85; RESP 20; TEMP 36.6; O2SAT 100; BMI 21.4
--- NOTE | 2023-09-22 11:57 | ED.ABDPAIN ---
HPI - Abdominal Pain General Chief Complaint: Urogenital-Female Stated Complaint: Sudden onset right flank pain Time Seen by Provider: 09/22/23 11:27 Source: patient and EMS Mode of arrival: EMS Related Data Home Medications Medication Instructions Recorded Confirmed divalproex 500 mg tablet,delayed 500 mg PO BID 07/24/19 07/29/19 release levetiracetam 500 mg tablet 500 mg PO BID 07/24/19 07/29/19 metoprolol tartrate 25 mg tablet 25 mg PO BID 07/24/19 07/29/19 naproxen 500 mg tablet 500 mg PO BID 07/24/19 07/29/19 pantoprazole 40 mg tablet,delayed 40 mg PO BID 07/24/19 07/29/19 release prazosin 1 mg capsule 1 mg PO DAILY 07/24/19 07/29/19 quetiapine 200 mg tablet 200 mg PO DAILY 07/24/19 07/29/19 sumatriptan succinate 100 mg tablet 100 mg PO PRN PRN Migraine Headache 07/24/19 07/29/19 Previous Rx's Medication Instructions Recorded albuterol sulfate 90 mcg/actuation 2 puff inhalation Q4-6H PRN 07/29/19 aerosol inhaler bronchospasm #8.5 grams cefdinir 300 mg capsule 300 mg PO BID #10 caps 09/01/23 Allergies Allergy/AdvReac Type Severity Reaction Status Date / Time morphine [MORPHINE] Allergy Unknown MAKES PAIN Verified 07/29/19 15:29 WORSE codeine Allergy Verified 09/07/23 16:48 prochlorperazine AdvReac Unknown UNCONTROLLABLE Verified 07/29/19 15:29 [From COMPAZINE] SHAKING Patient History Medical History (Updated 09/22/23 @ 00:00 by ) Schizophrenia PTSD (post-traumatic stress disorder) Migraine Bipolar disorder Asthma Surgical History H/O: hysterectomy History of cholecystectomy Social History Smoking Status: Current every day smoker Smoking Status: Current every day smoker tobacco type: cigarettes alcohol intake frequency: 3 or more drinks per day Alcohol type: hard liquor Substance Use Type: marijuana and methamphetamine Exam Initial Vital Signs Initial Vital Signs: Vital Signs Temperature 97.9 F 09/22/23 11:32 Pulse Rate 85 12/07/23 11:32 Respiratory Rate 20 09/22/23 11:32 Blood Pressure 125/66 09/22/23 11:32 Pulse Oximetry 100 09/22/23 11:32 Oxygen Delivery Method Room Air 09/22/23 11:32 Course Orders Ordered: ED Orders 09/22/23 11:30 Complete Blood Count AUTO DIFF Stat Comprehensive Metabolic Panel Stat Lipase Stat 09/22/23 11:36 Consult to GLASS BLOWER HELPER - Optical Design Engineer Stat 09/22/23 11:48 Urine Microscopic Stat Ondansetron HCl (Ondansetron 4 Mg Odt) 4 mg PO NOW PRN PRN Reason: Nausea And Vomiting Ondansetron HCl (Ondansetron 4 Mg/2 Ml Inj) 4 mg IV NOW PRN PRN Reason: Nausea And Vomiting Vital Signs Vital signs: Vital Signs - 8 hr 09/22/23 11:32 Temperature 97.9 F Pulse Rate 85 Respiratory Rate 20 Blood Pressure 125/66 Pulse Oximetry 100 Oxygen Delivery Method Room Air MDM - Abdominal Pain Lab Data 09/22/23 11:30 09/22/23 11:30 Point of care testing: Urine Dip Bedside Urine Glucose Negative Bedside Urine Bilirubin - Negative Bedside Urine Ketone - Negative Urine Specific [place] 1.015 Bedside Urine Occult Blood - Negative Bedside Urine pH 6.5 Bedside Urine Protein - Negative Bedside Urine Urobilinogen - Negative Bedside Urine Nitrite - Negative Bedside Urine Leukocytes + 70 Esterase Discharge Plan Departure Prescriptions: No Action albuterol sulfate 90 mcg/actuation HFA aerosol inhaler 2 puff INHALATION Q4-6H PRN (Reason: bronchospasm) Qty: 8.5 0RF levetiracetam 500 mg tablet 500 mg PO BID Patient Comments: patient states no meds taken today. just discharged from [place]. 07/24/19 sumatriptan succinate 100 mg tablet 100 mg PO PRN PRN (Reason: Migraine Headache) Patient Comments: patient states no meds taken today. just discharged from [place]. 07/24/19 prazosin 1 mg capsule 1 mg PO DAILY Patient Comments: patient states no meds taken today. just discharged from [place]. 07/24/19 quetiapine 200 mg tablet 200 mg PO DAILY Patient Comments: patient states no meds taken today. just discharged from [place]. 07/24/19 divalproex 500 mg tablet,delayed release (DR/EC) 500 mg PO BID Patient Comments: patient states no meds taken today. just discharged from [place]. 07/24/19 pantoprazole 40 mg tablet,delayed release (DR/EC) 40 mg PO BID Patient Comments: patient states no meds taken today. just discharged from [place]. 07/24/19 naproxen 500 mg tablet 500 mg PO BID Patient Comments: patient states no meds taken today. just discharged from [place]. 07/24/19 metoprolol tartrate 25 mg tablet 25 mg PO BID Patient Comments: patient states no meds taken today. just discharged from [place]. 07/24/19 cefdinir 300 mg capsule 300 mg PO BID Qty: 10 0RF Referrals: Donovan Horn MD [Primary Care Provider] -
[2023-09-22 11:58] LABS: Hematocrit 33.6 % (36-46); Hemoglobin 11.6 g/dL (12.0-16.0); Mean Corpuscular Hemoglobin 30.6 PG (26-34); Mean Corpuscular Volume 88.3 fL (80-100); Red Blood Cell Count 3.81 X10^6/uL (4.0-5.2); White Blood Cell Count 7.5 X10^3/uL (4.5-11.0)
[2023-09-22 11:59] LABS: Add Manual Diff / Slide Review NO; Basophils Absolute Auto 0 /uL (0-100); Basophils Percent Auto 0.4 % (0-2); Eosinophils Absolute Auto 0 /uL (0-450); Eosinophils Percent Auto 0.5 % (2-4); Lymphocytes Absolute Auto 1500 /uL (1100-4500); Lymphocytes Percent Auto 19.5 % (25-40); Mean Corpuscular HGB Conc 34.6 % (30-36); Monocytes Absolute Auto 300 /uL (0-900); Monocytes Percent Auto 3.9 % (3-14); Neutrophils Absolute Auto 5700 /uL (1500-7000); Neutrophils Percent Auto 75.7 % (50-75); Platelet Count 507 X10^3/uL (150-400)
[2023-09-22 12:08] LABS: Alanine Aminotransferase 26 IU/L (<35); Albumin 4.1 g/dL (3.5-5.0); Albumin Globulin Ratio 1.3 (1.0-2.8); Alkaline Phosphatase 51 U/L (38-126); Aspartate Aminotransferase 32 IU/L (14-36); BUN Creatinine Ratio 23.9 (6-22); Bilirubin Total 0.3 mg/dL (0.2-1.3); Blood Urea Nitrogen 16 mg/dL (7-17); Calcium 9.4 mg/dL (8.4-10.2); Carbon Dioxide 25 mmol/L (22-32); Chloride 99 mmol/L (98-107); Estimated Glomerular Filt Rate > 60 mL/min (>60); Globulin 3.2 g/dL (1.7-4.1); Glucose 118 mg/dL (80-110); HEMOLYSIS < 15 (0-50); Lipase 168 U/L (23-300); Potassium 3.8 mmol/L (3.4-5.1); Sodium 132 mmol/L (137-145); Total Protein 7.3 g/dL (6.3-8.2)
[2023-09-22 12:16] LABS: Amorphous Sediment Urine 2+; Bacteria Urine Occasional (0-1); Culture Indicated Urine Specimen Cultured; RBC Urine None Seen (0-5/HPF); Squamous Epithelial Cell Urine 1-5 /HPF (0-5/HPF); WBC Urine 1-5/HPF (0-5/HPF)
--- NOTE | 2023-09-22 12:29 | CM.SWNOTE ---
ED FORM COVERER Note Patient presents to ED via BLS due to concern for right flank pain. Patient is familiar to this ED with ED presentations within the last week related to various complaints. Patient has hx of polysubstance use, hx of PTSD, Bipolar Disorder, Schizophrenia and hx of SI. RN reports that patient requests [facility] outpatient resources. FORM COVERER enters room and provides patient with list of [facility] outpatient resources and housing resources. Patient denies any other needs from FORM COVERER. Plan: patient to d/c to community upon medical clearance. Dilcia Engle, PATIENT CLERICAL ASSISTANT
== END 2023-09-22 12:41 | disposition left against medical advice (07) ==
PROVIDERS: Emergency Provider Emergency Medicine; PCP Family Medicine
DX: R10.9 Unspecified abdominal pain (principal)
CPT/HCPCS: 36415; 80053; 81003; 81015; 83690; 85025; 87086; 99283

== ENCOUNTER 2023-11-03 14:18 | Emergency (ER) | payer MEDICARE, MEDICAID, SELFPAY ==
[2023-11-03] VITALS (7 sets, daily range): BP systolic 105–133; BP diastolic 63–76; PULSE 69–75; RESP 15–25; TEMP 36.8; O2SAT 98–100; BMI 21.8
--- NOTE | 2023-11-03 14:32 | DI.RAD.S_ITS ---
PROCEDURE: XR CHEST 1V INDICATIONS: CHEST PAIN/DYSPNEA TECHNIQUE: One view of the chest was acquired. COMPARISON: [facility], CR, XR CHEST 2V, 09/18/2023, 18:49. FINDINGS: Surgical changes and devices: Surgical clips in the right upper quadrant. Lungs and pleura: Lungs are clear. No pleural effusions or pneumothorax. Mediastinum: Mediastinal contours appear normal. Heart size is normal. Bones and chest wall: No suspicious bony lesions. Overlying soft tissues appear unremarkable. IMPRESSION: No acute cardiopulmonary process. Dictated by: Chang Cobos M.D. on 11/03/2023 at 14:51 Approved by: Chang Cobos M.D. on 11/03/2023 at 14:53
--- NOTE | 2023-11-03 14:32 | ED.CHESTPAIN ---
HPI - Chest Pain General Chief Complaint: Chest Pain Stated Complaint: GI Bleed Time Seen by Provider: 11/03/23 14:19 Source: patient and EMS Limitations: no limitations History of Present Illness HPI narrative: 68-year-old female very well known to this emergency department for frequent visits, homelessness, polysubstance abuse presents by EMS from [facility] for chest pain and shortness of breath. Patient states that she ?always? has this chest pain and shortness of breath, the only difference today is that she told the staff at [facility] about her symptoms. Patient told medics that she had dark tarry stools, told nurses here that she would bright red blood per rectum. Patient has arzola-positive review of systems. Related Data Home Medications Medication Instructions Recorded Confirmed divalproex 500 mg tablet,delayed 500 mg PO BID 07/24/19 07/29/19 release levetiracetam 500 mg tablet 500 mg PO BID 07/24/19 07/29/19 metoprolol tartrate 25 mg tablet 25 mg PO BID 07/24/19 07/29/19 naproxen 500 mg tablet 500 mg PO BID 07/24/19 07/29/19 pantoprazole 40 mg tablet,delayed 40 mg PO BID 07/24/19 07/29/19 release prazosin 1 mg capsule 1 mg PO DAILY 07/24/19 07/29/19 quetiapine 200 mg tablet 200 mg PO DAILY 07/24/19 07/29/19 sumatriptan succinate 100 mg tablet 100 mg PO PRN PRN Migraine Headache 07/24/19 07/29/19 Previous Rx's Medication Instructions Recorded albuterol sulfate 90 mcg/actuation 2 puff inhalation Q4-6H PRN 07/29/19 aerosol inhaler bronchospasm #8.5 grams cefdinir 300 mg capsule 300 mg PO BID #10 caps 09/01/23 Allergies Allergy/AdvReac Type Severity Reaction Status Date / Time morphine [MORPHINE] Allergy Unknown MAKES PAIN Verified 11/03/23 17:25 WORSE codeine Allergy Verified 11/03/23 17:25 prochlorperazine AdvReac Unknown UNCONTROLLABLE Verified 11/03/23 17:25 [From COMPAZINE] SHAKING Review of Systems Review of Systems Narrative: Patient says yes to every review of system question Patient History Medical History (Updated 11/03/23 @ 17:23 by Ninfa Grayson MD) Schizophrenia PTSD (post-traumatic stress disorder) Migraine Bipolar disorder Asthma Surgical History H/O: hysterectomy History of cholecystectomy Social History Smoking Status: Current every day smoker Smoking Status: Current every day smoker tobacco type: cigarettes alcohol intake frequency: 3 or more drinks per day Alcohol type: hard liquor Substance Use Type: marijuana and methamphetamine Exam Initial Vital Signs Initial Vital Signs: Vital Signs Temperature 98.2 F 11/03/23 14:18 Pulse Rate 69 11/03/23 14:18 Respiratory Rate 15 11/03/23 14:18 Blood Pressure 133/74 11/03/23 14:18 Pulse Oximetry 100 11/03/23 14:18 Oxygen Delivery Method Room Air 11/03/23 14:18 Const: Awake, alert, no acute distress Eyes: PERRL, EOMI, conjunctiva normal Cardiac: regular rate, regular rhythm RESP: unlabored, clear bilaterally, no wheezing GI: Atraumatic, soft, nontender Skin: Warm, Dry, intact, no rashes Neuro: AO x3, CN II-XII grossly intact, moves all extremities Course Orders Ordered: ED Orders 11/03/23 14:31 Consult to CHEMISTRY FACULTY MEMBER - Software Engineer Intern Stat 11/03/23 14:32 Chest [XR chest 1V] Stat 11/03/23 14:33 EKG-12 Lead Stat 11/03/23 15:05 BMP [Basic Metabolic Panel] Stat CBC Auto Diff [Complete Blood Count AUTO DIFF] Stat Vital Signs Vital signs: Vital Signs - 8 hr 11/03/23 14:18 11/03/23 14:21 11/03/23 14:22 Temperature 98.2 F Pulse Rate 69 75 Respiratory Rate 15 Blood Pressure 133/74 133/74 Pulse Oximetry 100 99 Oxygen Delivery Method Room Air 11/03/23 14:22 11/03/23 14:30 11/03/23 14:43 Temperature Pulse Rate 72 71 Respiratory Rate Blood Pressure 105/70 Pulse Oximetry 99 98 Oxygen Delivery Method Room Air Room Air 11/03/23 14:43 11/03/23 15:00 11/03/23 15:00 Temperature Pulse Rate 72 69 Respiratory Rate 23 25 H Blood Pressure 113/63 Pulse Oximetry 99 Oxygen Delivery Method Room Air 11/03/23 15:19 11/03/23 15:19 Temperature Pulse Rate 71 Respiratory Rate 23 Blood Pressure 128/76 Pulse Oximetry 100 Oxygen Delivery Method Room Air MDM - Chest Pain Lab Data 11/03/23 15:05 11/03/23 15:05 Labs: Lab Results 11/03/23 Range/Units 15:05 WBC 7.8 (4.5-11.0) X10^3/uL RBC 3.68 L (4.0-5.2) X10^6/uL Hgb 11.2 L (12.0-16.0) g/dL Hct 33.1 L (36-46) % MCV 90.1 (80-100) fL MCH 30.4 (26-34) PG MCHC 33.7 (30-36) % RDW 13.8 (11.6-14.8) % Plt Count 442 H (150-400) X10^3/uL Neut % (Auto) 65.4 (50-75) % Lymph % (Auto) 25.0 (25-40) % [place] % (Auto) 8.1 (3-14) % Eos % (Auto) 0.8 L (2-4) % Baso % (Auto) 0.7 (0-2) % Neut # (Auto) 5100 (2409-7734) /uL Lymph # (Auto) 2000 (0006-2037) /uL [place] # (Auto) 600 (0-900) /uL Eos # (Auto) 100 (0-450) /uL Baso # (Auto) 100 (0-100) /uL Sodium 132 L (137-145) mmol/L Potassium 4.2 (3.4-5.1) mmol/L Chloride 105 (98-107) mmol/L Carbon Dioxide 22 (22-32) mmol/L BUN 18 H (7-17) mg/dL Creatinine 0.64 (0.52-1.04) mg/dL Estimated GFR > 60 (>60) mL/min BUN/Creatinine Ratio 28.1 H (6-22) Glucose 76 L (80-110) mg/dL Calcium 8.7 (8.4-10.2) mg/dL MDM Narrative Medical decision making narrative: Nontoxic patient presenting by EMS for various complaints. Arzola positive review of systems. On my exam patient has no abnormalities, she states that she always has chest pain and shortness of breath and this is no different than prior. EKG is normal sinus rhythm, laboratory work shows that her hemoglobin is unchanged and there is no evidence of acute drop. Chest x-ray negative for acute findings. Troponin undetectable. At this time based on patient's presentation, labs no indication for hospitalization or other imaging at this time. Patient discharged back to [facility] Discharge Plan Departure Patient Disposition: Home Clinical Impression: Chest pain, Frequent attender of accident and emergency department, Left against medical advice Instructions: DI for Chest Pain Prescriptions: No Action albuterol sulfate 90 mcg/actuation HFA aerosol inhaler 2 puff INHALATION Q4-6H PRN (Reason: bronchospasm) Qty: 8.5 0RF levetiracetam 500 mg tablet 500 mg PO BID Patient Comments: patient states no meds taken today. just discharged from [place]. 07/24/19 sumatriptan succinate 100 mg tablet 100 mg PO PRN PRN (Reason: Migraine Headache) Patient Comments: patient states no meds taken today. just discharged from [place]. 07/24/19 prazosin 1 mg capsule 1 mg PO DAILY Patient Comments: patient states no meds taken today. just discharged from [place]. 07/24/19 quetiapine 200 mg tablet 200 mg PO DAILY Patient Comments: patient states no meds taken today. just discharged from [place]. 07/24/19 divalproex 500 mg tablet,delayed release (DR/EC) 500 mg PO BID Patient Comments: patient states no meds taken today. just discharged from [place]. 07/24/19 pantoprazole 40 mg tablet,delayed release (DR/EC) 40 mg PO BID Patient Comments: patient states no meds taken today. just discharged from [place]. 07/24/19 naproxen 500 mg tablet 500 mg PO BID Patient Comments: patient states no meds taken today. just discharged from [place]. 07/24/19 metoprolol tartrate 25 mg tablet 25 mg PO BID Patient Comments: patient states no meds taken today. just discharged from [place]. 07/24/19 cefdinir 300 mg capsule 300 mg PO BID Qty: 10 0RF Referrals: Donovan Horn MD [Primary Care Provider] - Stand Alone Forms: Patient Portal/API
[2023-11-03 15:14] LABS: Add Manual Diff / Slide Review NO; Basophils Absolute Auto 100 /uL (0-100); Basophils Percent Auto 0.7 % (0-2); Eosinophils Absolute Auto 100 /uL (0-450); Eosinophils Percent Auto 0.8 % (2-4); Hematocrit 33.1 % (36-46); Hemoglobin 11.2 g/dL (12.0-16.0); Lymphocytes Absolute Auto 2000 /uL (1100-4500); Mean Corpuscular HGB Conc 33.7 % (30-36); Mean Corpuscular Hemoglobin 30.4 PG (26-34); Mean Corpuscular Volume 90.1 fL (80-100); Monocytes Absolute Auto 600 /uL (0-900); Monocytes Percent Auto 8.1 % (3-14); Neutrophils Absolute Auto 5100 /uL (1500-7000); Neutrophils Percent Auto 65.4 % (50-75); Platelet Count 442 X10^3/uL (150-400); Red Blood Cell Count 3.68 X10^6/uL (4.0-5.2); Red Cell Distribution Width 13.8 % (11.6-14.8); White Blood Cell Count 7.8 X10^3/uL (4.5-11.0)
--- NOTE | 2023-11-03 15:24 | PC.NURSE ---
PT reports feeling dizzy and lightheaded. I asked if patient feels dizzy/lightheaded at rest or when walking around? Pt responds both. Pt was able to quickly walk to the bathroom by herself, and walk back to her room. Pt reports burning with urination the past week. She states she is homeless, living with her ex , and has some resources set up.
[2023-11-03 15:29] LABS: BUN Creatinine Ratio 28.1 (6-22); Blood Urea Nitrogen 18 mg/dL (7-17); Calcium 8.7 mg/dL (8.4-10.2); Carbon Dioxide 22 mmol/L (22-32); Chloride 105 mmol/L (98-107); Estimated Glomerular Filt Rate > 60 mL/min (>60); Glucose 76 mg/dL (80-110); HEMOLYSIS < 15 (0-50); Potassium 4.2 mmol/L (3.4-5.1); Sodium 132 mmol/L (137-145)
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
== END 2023-11-03 15:39 | disposition home or self-care (01) ==
PROVIDERS: Emergency Provider Emergency Medicine; PCP Family Medicine
DX: R07.9 Chest pain, unspecified (principal); R06.02 Shortness of breath; R42 Dizziness and giddiness; Z59.00 Homelessness unspecified; Z76.89 Persons encountering health services in other specified circumstances
CPT/HCPCS: 71045; 80048; 84484; 85025; 93005; 93010; 99281; 99282; 99284

== ENCOUNTER 2023-11-03 17:17 | Emergency (ER) | payer MEDICARE, MEDICAID, SELFPAY ==
[2023-11-03 17:22] VITALS: BP 143/56; PULSE 85; RESP 16; TEMP 36.6; O2SAT 100; BMI 21.4
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
[2023-11-03 18:23] LABS: Troponin I < 0.012 ng/mL (0.01-0.034)
--- NOTE | 2023-11-03 18:50 | PC.NURSE ---
Negative troponin results faxed to [facility]
== END 2023-11-03 19:46 | disposition home or self-care (01) ==
PROVIDERS: Emergency Provider Emergency Medicine; PCP Family Medicine
DX: R42 Dizziness and giddiness (principal); Z59.00 Homelessness unspecified; Z76.89 Persons encountering health services in other specified circumstances
CPT/HCPCS: 84484